=== PATIENT | male | born 1955 | race American Indian/Alaskan Native ===

== ENCOUNTER 2017-09-19 12:15 | Inpatient (IN) | payer MEDICARE ==
[2017-09-19] MEDS ORDERED: Sodium Chloride 0.9% 10 ML Syringe FLUSH PRN ×2 (12:28→15:56)
[2017-09-19] MEDS ORDERED: Lactated Ringers 1,000 ML IV SCH (12:30)
[2017-09-19] MEDS ORDERED: Levofloxacin/Dextrose 5%-Water 750 MG in Premix Bag 1 BAG IV SCH (12:30)
[2017-09-19] MEDS ORDERED: methylPREDNISolone Sodium Succinate 125 MG/2 ML SDV IVPUSH ONE (12:32)
[2017-09-19] MEDS ORDERED: Aspirin 81 MG Tab.Chew PO ONE (12:34)
--- NOTE | 2017-09-19 12:37 | EDM.PDOC ---
ED HPI GENERAL MEDICAL PROBLEM - General Chief Complaint: Fever Stated Complaint: CARDIAC/RESP [facility]IA [facility] Time Seen by Provider: 09/19/17 12:28 Source of Information: Reports: Patient, EMS, RN Notes Reviewed History Limitations: Reports: Respiratory Distress - History of Present Illness INITIAL COMMENTS - FREE TEXT/NARRATIVE: 62-year-old gentleman presents to the emergency department day complaint of shortness of breath and chest pain, he states he's been ill for about a week [place] was unable to get to the clinic, he states he's been progressively more short of breath over the week cough with sputum production now he is having chest pain EMS services were called. On arrival he was found to be hypoxic and tachycardic he does have an extensive coronary artery history as well as chronic obstructive pulmonary disease. Was given 3 nitroglycerin in route as he was also hypertensive he felt he had some relief from the nitroglycerin was placed on CPAP and given a DuoNeb in route as well. He does admit to having a fever at home he did not get his flu shot this year - Related Data Allergies Allergy/AdvReac Type Severity Reaction Status Date / Time No Known Allergies Allergy Verified 09/19/17 12:26 Home Meds: Home Meds NK [No Known Home Meds] 09/19/17 [History] Past Medical History Cardiovascular History: Reports: Bypass, CAD, High Cholesterol, Hypertension, Stents Respiratory History: Reports: COPD Endocrine/Metabolic History: Reports: Diabetes, Type II - Past Surgical History Cardiovascular Surgical History: Reports: Coronary Artery Bypass Social & Family History - Tobacco Use Smoking Status *Q: Current Every Day Smoker ED ROS GENERAL - Review of Systems Review Of Systems: See Below Constitutional: Reports: Fever, Chills HEENT: Reports: No Symptoms Respiratory: Reports: Shortness of Breath, Wheezing, Cough, Sputum Cardiovascular: Reports: Chest Pain, Dyspnea on Exertion GI/Abdominal: Reports: No Symptoms : Reports: No Symptoms Musculoskeletal: Reports: No Symptoms Skin: Reports: No Symptoms Neurological: Reports: No Symptoms ED EXAM, SEPSIS - Physical Exam Exam: See Below Text/Narrative:: General: Male moderate respiratory distress on CPAP able speak in single word sentences, alert and oriented x3 HEENT: head is atraumatic normocephalic, eyes pupils equal round reactive to light, sclera clear no conjunctivitis appreciated. Ears blocked by cerumen bilaterally. Nose no septal deviation, nares are clear, no blood present. Mouth mucosa is dry and red no erythema or exudate noted in soft palate, tongue is midline uvula is midline, dentition is intact. Neck: Supple no thyromegaly no tracheal deviation. Nodes: Cervical nodes subclavicular nodes nontender no palpable lymphadenopathy noted. Lungs: Decreased breath sounds with wheezing and crackles bilaterally throughout all lung spence CV: Tachycardic rate and rhythm S1 and S2 difficult to appreciate any adventitious noises Abdomen: Soft, nontender, no palpable masses or organomegaly appreciated, no distention no guarding bowel sounds are present, . Neuro: Cranial nerves II through XII grossly intact Skin: Warm and dry, intact Extremities: No lower extremity edema appreciated, Course - Vital Signs Last Recorded V/S: Last Vital Signs Temp 102.6 F H 09/19/17 12:34 Pulse 131 H 09/19/17 13:06 Resp 15 09/19/17 13:06 BP 134/101 H 09/19/17 13:06 Pulse Ox 98 09/19/17 13:06 - Orders/Labs/Meds Orders: Active Orders 24 hr Category Date Time Status BIPAP [RT BiPAP/CPAP] [RC] ASDIRECTED Care 09/19/17 13:37 Ordered Peripheral IV Care [RC] . DIRECTED Care 09/19/17 12:30 Active Vital Signs [RC] Q1H Care 09/19/17 12:28 Active Chest 1V Frontal [CR] Urgent Exams 09/19/17 12:28 Taken CULTURE BLOOD [BC] Urgent Lab 09/19/17 12:26 Received CULTURE BLOOD [BC] Urgent Lab 09/19/17 12:36 Received CULTURE RESPIRATORY + SMEAR [RM] Urgent Lab 09/19/17 12:28 Uncollected UA W/MICROSCOPIC [URIN] Urgent Lab 09/19/17 12:28 Uncollected Lactated Ringers [Ringers, Lactated] 1,000 ml Med 09/19/17 12:30 Active IV ASDIRECTED Levofloxacin/Dextrose 5%-Water [Levaquin in D5W 750 MG/ Med 09/19/17 12:30 Active 150 ML] 750 mg Premix Bag 1 bag IV Q24H Piperacillin/Tazobactam [Zosyn] 3.375 gm Med 09/19/17 13:45 Ordered Sodium Chloride 0.9% [Normal Saline] 50 ml IV Q6H Sodium Chloride 0.9% [Saline Flush] Med 09/19/17 12:28 Active 10 ml FLUSH ASDIRECTED PRN Blood Culture x2 Reflex Set [OM.PC] Urgent Oth 09/19/17 12:28 Ordered Peripheral IV Insertion Adult [OM.PC] Urgent Oth 09/19/17 12:28 Ordered Medication Orders Lactated Ringer's (Ringers, Lactated) 1,000 mls @ 999 mls/hr IV ASDIRECTED ANTONINA Last Admin: 09/19/17 12:51 Dose: 999 mls/hr Levofloxacin/Dextrose 750 mg/ (Premix) 150 mls @ 100 mls/hr IV Q24H ANTONINA Last Admin: 09/19/17 12:52 Dose: 100 mls/hr Piperacillin Sod/Tazobactam (Sod 3.375 gm/ Sodium Chloride) 50 mls @ 100 mls/ hr IV Q6H [facility] Sodium Chloride (Saline Flush) 10 ml FLUSH ASDIRECTED PRN PRN Reason: Keep Vein Open Last Admin: 09/19/17 12:51 Dose: 10 ml Labs: Laboratory Tests 09/19/17 09/19/17 09/19/17 Range/Units 12:26 12:26 12:26 WBC 21.7 H (4.5-11.0) K/uL RBC 5.28 (4.30-5.90) M/uL Hgb 15.6 H (12.0-15.0) g/dL Hct 45.5 (40.0-54.0) % MCV 86 (80-98) fL MCH 30 (27-31) pg MCHC 34 (32-36) % Plt Count 480 H (150-400) K/uL Neut % (Auto) 90 H (36-66) % Lymph % (Auto) 5 L (24-44) % Woodward % (Auto) 6 (2-6) % Eos % (Auto) 0 L (2-4) % Baso % (Auto) 0 (0-1) % Puncture Site ABG pH (7.350-7.450) ABG pCO2 (35.0-42.0) mmHg ABG pO2 (75.0-100.0) mmHg ABG HCO3 (22.0-26.0) mmol/L ABG Total CO2 (23.0-27.0) mmol/L ABG O2 Saturation (95.0-98.0) % ABG O2 Content (15.0-23.0) %vol ABG Base Excess mm/L ABG Hemoglobin (13.5-18.0) g/dL ABG Oxyhemoglobin % ABG Carboxyhemoglobin (0.0-1.6) % ABG Methemoglobin % Ollie Test O2 Delivery Device Oxygen Flow Rate L Sodium 138 L (140-148) mmol/L Potassium 3.7 (3.6-5.2) mmol/L Chloride 103 (100-108) mmol/L Carbon Dioxide 25 (21-32) mmol/L Anion Gap 13.7 (5.0-14.0) mmol/L BUN 9 (7-18) mg/dL Creatinine 0.9 (0.8-1.3) mg/dL Est Cr Clr Drug Dosing 87.28 mL/min Estimated GFR (MDRD) > 60 (>60) Glucose 131 H (74-106) mg/dL Lactic Acid 1.1 (0.4-2.0) mmol/L Calcium 8.6 (8.5-10.1) mg/dL Total Bilirubin 1.2 H (0.2-1.0) mg/dL AST 23 (15-37) U/L ALT 32 (12-78) U/L Alkaline Phosphatase 118 H (46-116) U/L Troponin I (0.000-0.056) ng/mL C-Reactive Protein 16.98 H (0.0-0.3) mg/dL Total Protein 6.7 (6.4-8.2) g/dL Albumin 1.9 L (3.4-5.0) g/dL Globulin 4.8 H (2.3-3.5) g/dL Albumin/Globulin Ratio 0.4 L (1.2-2.2) 09/19/17 09/19/17 Range/Units 12:26 12:30 WBC (4.5-11.0) K/uL RBC (4.30-5.90) M/uL Hgb (12.0-15.0) g/dL Hct (40.0-54.0) % MCV (80-98) fL MCH (27-31) pg MCHC (32-36) % Plt Count (150-400) K/uL Neut % (Auto) (36-66) % Lymph % (Auto) (24-44) % Woodward % (Auto) (2-6) % Eos % (Auto) (2-4) % Baso % (Auto) (0-1) % Puncture Site Rt radial ABG pH 7.524 H (7.350-7.450) ABG pCO2 29.2 L (35.0-42.0) mmHg ABG pO2 57.2 L (75.0-100.0) mmHg ABG HCO3 23.9 (22.0-26.0) mmol/L ABG Total CO2 20.2 L (23.0-27.0) mmol/L ABG O2 Saturation 91.4 L (95.0-98.0) % ABG O2 Content 19.1 (15.0-23.0) %vol ABG Base Excess 2.4 mm/L ABG Hemoglobin 15.1 (13.5-18.0) g/dL ABG Oxyhemoglobin 90.3 % ABG Carboxyhemoglobin 0.6 (0.0-1.6) % ABG Methemoglobin 0.6 % Ollie Test Pass O2 Delivery Device Non rebr mask Oxygen Flow Rate 4 L Sodium (140-148) mmol/L Potassium (3.6-5.2) mmol/L Chloride (100-108) mmol/L Carbon Dioxide (21-32) mmol/L Anion Gap (5.0-14.0) mmol/L BUN (7-18) mg/dL Creatinine (0.8-1.3) mg/dL Est Cr Clr Drug Dosing mL/min Estimated GFR (MDRD) (>60) Glucose (74-106) mg/dL Lactic Acid (0.4-2.0) mmol/L Calcium (8.5-10.1) mg/dL Total Bilirubin (0.2-1.0) mg/dL AST (15-37) U/L ALT (12-78) U/L Alkaline Phosphatase (46-116) U/L Troponin I < 0.017 (0.000-0.056) ng/mL C-Reactive Protein (0.0-0.3) mg/dL Total Protein (6.4-8.2) g/dL Albumin (3.4-5.0) g/dL Globulin (2.3-3.5) g/dL Albumin/Globulin Ratio (1.2-2.2) Meds: Medications Generic Name Dose Route Start Last Admin Trade Name Freq PRN Reason Stop Dose Admin Lactated Ringer's 1,000 mls @ 999 mls/hr 09/19/17 12:30 09/19/17 12:51 Ringers, Lactated IV 999 mls/hr ASDIRECTED ANTONINA Administration Levofloxacin/Dextrose 750 mg/ 150 mls @ 100 mls/hr 09/19/17 12:30 09/19/17 12 :52 Premix IV 100 mls/hr Q24H ANTONINA Administration Piperacillin Sod/Tazobactam 50 mls @ 100 mls/hr 09/19/17 13:45 Sod 3.375 gm/ Sodium Chloride IV Q6H ANTONINA Sodium Chloride 10 ml 09/19/17 12:28 09/19/17 12:51 Saline Flush FLUSH 10 ml ASDIRECTED PRN Administration Keep Vein Open Discontinued Medications Generic Name Dose Route Start Last Admin Trade Name Freq PRN Reason Stop Dose Admin Aspirin 324 mg 09/19/17 12:34 09/19/17 12:40 Aspirin PO 09/19/17 12:35 Not Given ONETIME ONE Methylprednisolone Sodium Succinate 125 mg 09/19/17 12:32 09/19/17 12:51 Solu-Medrol IVPUSH 09/19/17 12:33 125 mg ONETIME ONE Administration Departure - Departure Time of Disposition: 13:44 Disposition: Admitted As Inpatient 68 Condition: Fair Clinical Impression: Sepsis Qualifiers: Sepsis type: sepsis due to unspecified organism Qualified Code(s): A41.9 - Sepsis, unspecified organism - Discharge Information Forms: ED Department Discharge - My Orders Last 24 Hours: My Active Orders 09/19/17 12:26 CULTURE BLOOD [BC] Urgent 09/19/17 12:28 Vital Signs [RC] Q1H Chest 1V Frontal [CR] Urgent CULTURE RESPIRATORY + SMEAR [RM] Urgent UA W/MICROSCOPIC [URIN] Urgent Sodium Chloride 0.9% [Saline Flush] 10 ml FLUSH ASDIRECTED PRN Blood Culture x2 Reflex Set [OM.PC] Urgent Peripheral IV Insertion Adult [OM.PC] Urgent 09/19/17 12:30 Peripheral IV Care [RC] . DIRECTED Lactated Ringers [Ringers, Lactated] 1,000 ml IV ASDIRECTED Levofloxacin/Dextrose 5%-Water [Levaquin in D5W 750 MG/150 ML] 750 mg Premix Bag 1 bag IV Q24H 09/19/17 12:36 CULTURE BLOOD [BC] Urgent 09/19/17 13:37 BIPAP [RT BiPAP/CPAP] [RC] ASDIRECTED 09/19/17 13:45 Piperacillin/Tazobactam [Zosyn] 3.375 gm Sodium Chloride 0.9% [Normal Saline] 50 ml IV Q6H - Assessment/Plan Last 24 Hours: My Active Orders 09/19/17 12:26 CULTURE BLOOD [BC] Urgent 09/19/17 12:28 Vital Signs [RC] Q1H Chest 1V Frontal [CR] Urgent CULTURE RESPIRATORY + SMEAR [RM] Urgent UA W/MICROSCOPIC [URIN] Urgent Sodium Chloride 0.9% [Saline Flush] 10 ml FLUSH ASDIRECTED PRN Blood Culture x2 Reflex Set [OM.PC] Urgent Peripheral IV Insertion Adult [OM.PC] Urgent 09/19/17 12:30 Peripheral IV Care [RC] . DIRECTED Lactated Ringers [Ringers, Lactated] 1,000 ml IV ASDIRECTED Levofloxacin/Dextrose 5%-Water [Levaquin in D5W 750 MG/150 ML] 750 mg Premix Bag 1 bag IV Q24H 09/19/17 12:36 CULTURE BLOOD [BC] Urgent 09/19/17 13:37 BIPAP [RT BiPAP/CPAP] [RC] ASDIRECTED 09/19/17 13:45 Piperacillin/Tazobactam [Zosyn] 3.375 gm Sodium Chloride 0.9% [Normal Saline] 50 ml IV Q6H Plan: Assessment Acuity = acute Site and laterality = sepsis with pulmonary component complicated patient with known history of chronic obstructive pulmonary disease and diabetes mellitus type 2 as well as coronary artery disease Etiology = probable bacterial cause Manifestations = hypoxic, tachycardic, fever Location of injury = Home Lab values = WBC elevated at 21.7 consistent leukocytosis of pH is 7.5 to consistent with alkalosis PCO2 29.2 PCO2 57.2 and a bicarbonate of 24 bilirubin total is 1.1 consistent hyperbilirubinemia albumin low at 1.9 consistent hypoalbuminemia lactic acid and troponin both negative chest x-ray shows infiltrates on the right side EKG demonstrates a sinus tachycardia Plan Called and discussed case with hospitalist electronic security technician agreed, and evaluate the patient in the emergency department for admission has been given a dose of Zosyn as well as levofloxacin 1 L of lactated Ringer's initiated This note was dictated using [employer] voice recognition software please call with any questions on syntax or kiara.
[2017-09-19] MEDS ORDERED: Piperacillin/Tazobactam 3.375 GM in Sodium Chloride 0.9% 50 ML IV SCH (13:45)
[2017-09-19] MEDS ORDERED: Lactated Ringers 1,000 ML IV ONE (14:34)
[2017-09-19] MEDS ORDERED: Ondansetron 4 MG/2 ML SDV IV PRN (15:56)
[2017-09-19] MEDS ORDERED: Docusate Sodium 100 MG Cap PO PRN (15:56)
[2017-09-19] MEDS ORDERED: Glucose Gel 15 GM in 37.5 GM Tube PO PRN (15:56)
[2017-09-19] MEDS ORDERED: Albuterol 0.083% 2.5 MG/3 ML Neb Soln NEB PRN (15:56)
[2017-09-19] MEDS ORDERED: Lactated Ringers 500 ML IV SCH (15:56)
[2017-09-19] MEDS ORDERED: oxyCODONE 5 MG Tab PO PRN (15:56)
[2017-09-19] MEDS ORDERED: Magnesium Hydroxide 400 MG/5 ML Susp 30 ML Cup PO PRN (15:56)
[2017-09-19] MEDS ORDERED: 50% Dextrose in Water 50 ML Syringe IV PRN (15:56)
[2017-09-19] MEDS ORDERED: Enoxaparin 40 MG/0.4 ML Syringe SUBCUT SCH (15:56)
[2017-09-19] MEDS ORDERED: Polyethylene Glycol 3350 Powder 17 GM Packet PO PRN (15:56)
[2017-09-19] MEDS: Metoprolol Tartrate 25 MG Tab PO SCH ×2 (16:28→20:32)
[2017-09-19] MEDS: Albuterol/Ipratropium 3.0-0.5 MG/3 ML Neb Soln NEB SCH ×2 (16:28→20:33)
[2017-09-19] MEDS: Piperacillin/Tazobactam 4.5 GM in Sodium Chloride 0.9% 100 ML IV SCH ×2 (16:51→22:08)
--- NOTE | 2017-09-19 16:58 | PCM.HP ---
H&P History of Present Illness - General Date of Service: 09/19/17 Admit Problem/Dx: Admission Diagnosis/Problem Admission Diagnosis/Problem Pneumonia Source of Information: Patient, Provider, RN Notes Reviewed History Limitations: Reports: No Limitations - History of Present Illness Initial Comments - Free Text/Narative: Mr. Turner is a 62-year-old gentleman who is admitted through the emergency department with hypoxia and shortness of breath secondary to right lung pneumonia with underlying sepsis and COPD exacerbation. He has a known history of coronary artery disease status post previous coronary artery bypass surgery. Over the past 2 weeks his had progressive difficulty with shortness of breath fever and cough. Symptoms became very severe today and he called for the ambulance and was brought into the emergency department by EMS. When initially picked up by EMS was felt to have some chest pain and received IV nitroglycerin in the ambulance. Nitroglycerin was discontinued when he arrived in the emergency department with no evidence of acute myocardial infarction or angina. White blood cell count is significantly elevated and he is been noted to have temperature elevation with tachycardia and documented hypoxia. Respiratory rate was significantly increased into the 30s and he was found to have sinus tachycardia with rates in the 150 range. He is currently on BiPAP and noted significant improvement in his respiratory symptoms following IV fluid infusion heart rate is come down between 110 and 120. - Related Data Allergies/Adverse Reactions: Allergies Allergy/AdvReac Type Severity Reaction Status Date / Time No Known Allergies Allergy Verified 09/19/17 12:26 Home Medications: Home Meds NK [No Known Home Meds] 09/19/17 [History] Past Medical History Cardiovascular History: Reports: Bypass, CAD, High Cholesterol, Hypertension, Stents Respiratory History: Reports: COPD Endocrine/Metabolic History: Reports: Diabetes, Type II - Past Surgical History Cardiovascular Surgical History: Reports: Coronary Artery Bypass Social & Family History - Tobacco Use Smoking Status *Q: Former Smoker Used Tobacco, but Quit: Yes Month Tobacco Last Used: 1 - Caffeine Use Caffeine Use: Reports: Coffee - Recreational Drug Use Recreational Drug Use: No H&P Review of Systems - Review of Systems: Review Of Systems: See Below General: Reports: Fever, Chills, Weakness, Diaphoresis, Decreased Appetite HEENT: Reports: No Symptoms Pulmonary: Reports: Shortness of Breath, Wheezing, Cough, Sputum. Denies: Pleuritic Chest Pain, Hemoptysis Cardiovascular: Reports: Dyspnea on Exertion. Denies: Chest Pain, Palpitations , Orthopnea, PND, Edema, Lightheadedness, Syncope Gastrointestinal: Reports: No Symptoms Genitourinary: Reports: No Symptoms Musculoskeletal: Reports: No Symptoms Skin: Reports: No Symptoms Psychiatric: Reports: No Symptoms Neurological: Reports: No Symptoms Hematologic/Lymphatic: Reports: No Symptoms Immunologic: Reports: No Symptoms Exam - Exam Exam: See Below - Vital Signs Vital Signs: Last Vital Signs Temp 100.4 F 09/19/17 14:49 Pulse 103 H 09/19/17 16:28 Resp 26 H 09/19/17 16:00 BP 144/96 H 09/19/17 16:28 Pulse Ox 97 09/19/17 16:00 Weight: 232 lb 3.2 oz - Exam Quality Assessment: Supplemental Oxygen, DVT Prophylaxis General: Alert, Oriented, Cooperative, Moderate Distress HEENT: Conjunctiva Clear, Hearing Intact, Mucosa Moist & [place], Normal Nasal Septum, Posterior Pharynx Clear, Pupils Equal Neck: Supple, Trachea Midline, +2 Carotid Pulse wo Bruit Lungs: Decreased Breath Sounds, Rhonchi, Wheezing. No: Crackles, Rales, Rub, Stridor Cardiovascular: Regular Rhythm, Normal S1, Normal S2, Tachycardia. No: Systolic Murmur, Diastolic Murmur GI/Abdominal Exam: Soft, Non-Tender, No Organomegaly, No Distention Back Exam: Normal Inspection, Full Range of Motion Extremities: Non-Tender, No Pedal Edema Skin: Warm, Dry, Intact Neurological: Cranial Nerves Intact, Strength Equal Bilateral, Normal Speech, Normal Tone, Sensation Intact. No: Focal Deficit Neuro Extensive - Mental Status: Alert, Oriented x3, Normal Mood/Affect, Normal Cognition, Memory Intact - Patient Data Lab Results Last 24 hrs: Laboratory Results - last 24 hr 09/19/17 Range/Units 16:10 Urine Color [place] Urine Appearance Cloudy Urine pH 7.0 (4.5-8.0) Ur Specific [place] 1.010 (1.008-1.030) Urine Protein 100 H (NEGATIVE) mg/dL Urine Glucose (UA) Normal (NEGATIVE) mg/dL Urine Ketones Negative (NEGATIVE) mg/dL Urine Occult Blood Negative (NEGATIVE) Urine Nitrite Negative (NEGAITVE) Urine Bilirubin Small (NEGATIVE) Urine Urobilinogen 8 (NORMAL) mg/dL Ur Leukocyte Esterase Negative (NEGATIVE) Urine RBC 0-5 (0-5) Urine WBC 0-5 (0-5) Ur Epithelial Cells Few Amorphous Sediment Few Urine Bacteria Rare Urine Mucus Numerous Result Diagrams: 09/19/17 12:26 09/19/17 12:26 Federico Results Last 24 hrs: Microbiology 09/19/17 16:17 Gram Stain - Final Sputum - Expectorated *Q Meaningful Use (ADM) - VTE *Q VTE Criteria *Q: - VTE Risk Assess *Q Each Risk Factor Represents 1 Point: Serious lung disease including pneumonia, Abnormal Pulmonary Function (COPD) Total Score 1 Point Risk Factors: 2 Each Risk Factor Represents 2 Points: Age 60 - 74 Years Total Score 2 Point Risk Factors: 2 Each Risk Factor Represents 3 Points: None Total Score 3 Point Risk Factors: 0 Each Risk Factor Represents 5 Points: None Total Score 5 Point Risk Factors: 0 Venous Thromboembolism Risk Factor Score *Q: 4 - Stroke *Q Stroke Criteria *Q: - AMI *Q AMI Criteria *Q: Problem List Initiated/Reviewed/Updated: Yes Orders Last 24hrs: Active Orders 24 hr Category Date Time Status Patient Status [ADT] Routine ADT 09/19/17 15:56 Active Ambulate [RC] QID Care 09/19/17 15:56 Active Blood Glucose Check, Bedside [RC] QIDACANDBED Care 09/19/17 15:56 Active Cardiac Monitoring [RC] .As Directed Care 09/19/17 15:56 Active Diabetes Education [RC] Click to Edit Care 09/19/17 15:56 Active Height and Weight [RC] DAILY Care 09/19/17 15:56 Active Intake and Output [RC] QSHIFT Care 09/19/17 15:56 Active Notify Provider Vital Signs [RC] ASDIRECTED Care 09/19/17 15:56 Active Notify Provider [RC] PRN Care 09/19/17 15:56 Active Oxygen Therapy [RC] PRN Care 09/19/17 15:56 Active Pulse Oximetry [RC] CONTINUOUS Care 09/19/17 15:56 Active RT Aerosol Therapy [RC] ASDIRECTED Care 09/19/17 15:56 Active RT BiPAP/CPAP [RC] ASDIRECTED Care 09/19/17 15:56 Active Up With Assistance [RC] ASDIRECTED Care 09/19/17 15:56 Active Up to Chair [RC] QID Care 09/19/17 15:56 Active Vital Signs [RC] Q4H Care 09/19/17 15:56 Active 2 Gram Sodium Diet [DIET] Diet 09/19/17 Lunch Active Consistent Carbohydrate Diet [DIET] Diet 09/19/17 Lunch Active Chest 1V Frontal [CR] AM Exams 09/20/17 05:11 Ordered Echo Comp wo Cont [US] Urgent Exams 09/21/17 08:00 Ordered BLOOD GAS ARTERIAL [BG] Stat Lab 09/19/17 17:00 Ordered BLOOD GAS ARTERIAL [BG] Timed Lab 09/20/17 05:00 Ordered CBC WITH AUTO DIFF [HEME] AM Lab 09/20/17 05:11 Ordered COMPREHENSIVE METABOLIC PN,CMP [CHEM] AM Lab 09/20/17 05:11 Ordered GLUCOSE POC LAB TO COLLECT [POC] QIDACANDBED Lab 09/20/17 07:30 Ordered GLUCOSE POC LAB TO COLLECT [POC] QIDACANDBED Lab 09/20/17 11:30 Ordered GLUCOSE POC LAB TO COLLECT [POC] QIDACANDBED Lab 09/20/17 16:30 Ordered GLUCOSE POC LAB TO COLLECT [POC] QIDACANDBED Lab 09/20/17 21:00 Ordered GLUCOSE POC LAB TO COLLECT [POC] QIDACANDBED Lab 09/21/17 07:30 Ordered GLUCOSE POC LAB TO COLLECT [POC] QIDACANDBED Lab 09/21/17 11:30 Ordered GLUCOSE POC LAB TO COLLECT [POC] QIDACANDBED Lab 09/21/17 16:30 Ordered GLUCOSE POC LAB TO COLLECT [POC] QIDACANDBED Lab 09/21/17 21:00 Ordered GLUCOSE POC LAB TO COLLECT [POC] QIDACANDBED Lab 09/22/17 07:30 Ordered GLUCOSE POC LAB TO COLLECT [POC] QIDACANDBED Lab 09/22/17 11:30 Ordered GLUCOSE POC LAB TO COLLECT [POC] QIDACANDBED Lab 09/22/17 16:30 Ordered GLUCOSE POC LAB TO COLLECT [POC] QIDACANDBED Lab 09/22/17 21:00 Ordered GLUCOSE POC LAB TO COLLECT [POC] QIDACANDBED Lab 09/23/17 07:30 Ordered GLUCOSE POC LAB TO COLLECT [POC] QIDACANDBED Lab 09/23/17 11:30 Ordered GLUCOSE POC LAB TO COLLECT [POC] QIDACANDBED Lab 09/23/17 16:30 Ordered GLUCOSE POC LAB TO COLLECT [POC] QIDACANDBED Lab 09/23/17 21:00 Ordered GLUCOSE POC LAB TO COLLECT [POC] QIDACANDBED Lab 09/24/17 07:30 Ordered GLUCOSE POC LAB TO COLLECT [POC] QIDACANDBED Lab 09/24/17 11:30 Ordered GLUCOSE POC LAB TO COLLECT [POC] QIDACANDBED Lab 09/24/17 16:30 Ordered GLUCOSE POC LAB TO COLLECT [POC] QIDACANDBED Lab 09/24/17 21:00 Ordered GLYCOSYLATED HEMOGLOBIN,HGBA1C [CHEM] AM Lab 09/20/17 05:11 Ordered LIPID PANEL [CHEM] AM Lab 09/20/17 05:11 Ordered MAGNESIUM [CHEM] AM Lab 09/20/17 05:11 Ordered TROPONIN I [CHEM] AM Lab 09/20/17 05:11 Ordered TROPONIN I [CHEM] Stat Lab 09/19/17 17:00 Ordered TROPONIN I [CHEM] Stat Lab 09/19/17 23:00 Ordered Acetaminophen [Tylenol] Med 09/19/17 15:56 Active 650 mg PO Q4H PRN Albuterol [Proventil Neb Soln] Med 09/19/17 15:56 Active 2.5 mg NEB Q4H PRN Albuterol/Ipratropium [DuoNeb 3.0-0.5 MG/3 ML] Med 09/19/17 16:15 Active 3 ml NEB QIDRT Dextrose 50% in Water Med 09/19/17 15:56 Active 50 ml IV ONETIME PRN Dextrose [Glutose 15] Med 09/19/17 15:56 Active 15 gm PO ONETIME PRN Docusate Sodium [Colace] Med 09/19/17 15:56 Active 100 mg PO BID PRN Enoxaparin [Lovenox] Med 09/19/17 15:56 Active 40 mg SUBCUT DAILY Insulin Aspart [NovoLOG] Med 09/19/17 17:00 Active See Protocol SUBCUT QIDACANDBED Lactated Ringers [Ringers, Lactated] 1,000 ml Med 09/19/17 18:00 Active IV ASDIRECTED Lactated Ringers [Ringers, Lactated] 500 ml Med 09/19/17 15:56 Active IV .BOLUS Levofloxacin/Dextrose 5%-Water [Levaquin in D5W 750 MG/ Med 09/20/17 13:00 Active 150 ML] 750 mg Premix Bag 1 bag IV Q24H Lisinopril [Prinivil] Med 09/20/17 09:00 Active 10 mg PO DAILY Magnesium Hydroxide [Milk of Magnesia] Med 09/19/17 15:56 Active 30 ml PO Q12H PRN Metoprolol Tartrate [Lopressor] Med 09/19/17 15:56 Active 25 mg PO BID Ondansetron [Zofran] Med 09/19/17 15:56 Active 4 mg IV Q4H PRN Piperacillin/Tazobactam [Zosyn] 4.5 gm Med 09/19/17 16:00 Active Sodium Chloride 0.9% [Normal Saline] 100 ml IV Q6H Polyethylene Glycol 3350 [MiraLAX] Med 09/19/17 15:56 Active 17 gm PO DAILY PRN Sodium Chloride 0.9% [Saline Flush] Med 09/19/17 15:56 Active 10 ml FLUSH ASDIRECTED PRN oxyCODONE Med 09/19/17 15:56 Active 5 mg PO Q4H PRN Give supplemental Oxygen PRN [COMM] Routine Oth 09/19/17 15:56 Ordered Peripheral IV Insertion Adult [OM.PC] Routine Oth 09/19/17 15:56 Ordered Resuscitation Status Routine Resus Stat 09/19/17 14:56 Ordered Medication Orders Acetaminophen (Tylenol) 650 mg PO Q4H PRN PRN Reason: Pain (Mild 1-3)/fever Albuterol (Proventil Neb Soln) 2.5 mg NEB Q4H PRN PRN Reason: Shortness Of Breath/wheezing Albuterol/Ipratropium (Duoneb 3.0-0.5 Mg/3 Ml) 3 ml NEB QIDRT [facility] Last Admin: 09/19/17 16:28 Dose: 3 ml Dextrose (Glutose 15) 15 gm PO ONETIME PRN PRN Reason: Hypoglycemia Dextrose/Water (Dextrose 50% In Water) 50 ml IV ONETIME PRN PRN Reason: Hypoglycemia Docusate Sodium (Colace) 100 mg PO BID PRN PRN Reason: Constipation Enoxaparin Sodium (Lovenox) 40 mg SUBCUT DAILY [facility] Last Admin: 09/19/17 16:48 Dose: 40 mg Lactated Ringer's (Ringers, Lactated) 500 mls @ 500 mls/hr IV .BOLUS [facility] Stop: 09/19/17 18:57 Last Admin: 09/19/17 16:49 Dose: 500 mls/hr Lactated Ringer's (Ringers, Lactated) 1,000 mls @ 125 mls/hr IV ASDIRECTED [facility] Levofloxacin/Dextrose 750 mg/ (Premix) 150 mls @ 100 mls/hr IV Q24H [facility] Piperacillin Sod/Tazobactam (Sod 4.5 gm/ Sodium Chloride) 100 mls @ 200 mls/hr IV Q6H [facility] Last Admin: 09/19/17 16:51 Dose: 200 mls/hr Insulin Aspart (Novolog) 0 unit SUBCUT QIDACANDBED [facility] PRN Reason: Protocol Lisinopril (Prinivil) 10 mg PO DAILY [facility] Magnesium Hydroxide (Milk Of Magnesia) 30 ml PO Q12H PRN PRN Reason: Constipation Metoprolol Tartrate (Lopressor) 25 mg PO BID [facility] Last Admin: 09/19/17 16:28 Dose: 25 mg Ondansetron HCl (Zofran) 4 mg IV Q4H PRN PRN Reason: Nausea/Vomiting Oxycodone HCl (Oxycodone) 5 mg PO Q4H PRN PRN Reason: Pain (moderate 4-6) Polyethylene Glycol (Miralax) 17 gm PO DAILY PRN PRN Reason: Constipation Sodium Chloride (Saline Flush) 10 ml FLUSH ASDIRECTED PRN PRN Reason: Keep Vein Open Assessment/Plan Comment:: ASSESSMENT AND PLAN PNEUMONIA WITH SEPSIS-symptoms a respiratory tract infection over the past 2 weeks, significantly worse over the past few days. Evidence of sepsis with tachycardia, leukocytosis, and significant temperature elevation. He is receiving vigorous IV fluid replacement in the emergency department and started on antibiotic therapy. Blood cultures were obtained prior to initiation of antibiotics. -Blood cultures pending -Sputum culture pending -IV fluid replacement per sepsis protocol, 30 mL/kg -IV Levaquin and Zosyn pending culture results -Follow-up chest x-ray in a.m. HYPOXIC RESPIRATORY FAILURE-secondary to pneumonia and underlying COPD -Supplemental oxygen as needed -Management of pneumonia as above -Noninvasive positive pressure ventilation -Recheck blood gases today and again tomorrow -Nebulized albuterol and duo nebs COPD EXACERBATION -Management as above TYPE 2 DIABETES MELLITUS -4 times a day glucometers -Low-dose sliding scale NovoLog CORONARY ARTERY DISEASE-he did experience symptoms of chest pain this morning when picked up by EMS. Since then has had no further pain, initial EKG and troponin levels unremarkable for ischemia or infarct. -Currently on no medical therapy, will add low-dose beta any and DEMETRIUS inhibitor -Serial troponin levels -Consider stress test when respiratory status has stabilized MAINTENANCE ISSUES -DVT prophylaxis; Lovenox 40 mg subcutaneous daily -GI prophylaxis; not indicated -Weller catheter; not indicated -Nutrition; consistent carb 2 g sodium diet -Nicotine dependence; not required CODE STATUS-FULL CODE ADMISSION STATUS-patient will be admitted to inpatient status, expect at least a 2 night hospital stay for evaluation and management of problems as outlined above. At the time of this admission I do not reasonably expected evaluation and management of this problem will require more than a 96 hour hospital stay. DISPOSITION-anticipate discharge to home after the hospital stay. PRIMARY CARE PROVIDER-currently does not have a primary care provider
[2017-09-19] MEDS: Insulin Aspart 100 Units/ML 3 ML Pen SUBCUT SCH ×2 (17:52→20:28)
[2017-09-19] MEDS: Lactated Ringers 1,000 ML IV SCH (17:59)
[2017-09-20] MEDS: Lactated Ringers 1,000 ML IV SCH (02:10)
[2017-09-20] MEDS ORDERED: Sodium Chloride 0.9% 100 ML ONE (04:17)
[2017-09-20] MEDS: Piperacillin/Tazobactam 4.5 GM in Sodium Chloride 0.9% 100 ML IV SCH (04:24)
[2017-09-20] MEDS: Albuterol/Ipratropium 3.0-0.5 MG/3 ML Neb Soln NEB SCH ×4 (07:05→20:19)
[2017-09-20] MEDS: Insulin Aspart 100 Units/ML 3 ML Pen SUBCUT SCH ×4 (08:06→20:19)
[2017-09-20] MEDS: Metoprolol Tartrate 25 MG Tab PO SCH ×2 (08:18→20:18)
[2017-09-20] MEDS: Lisinopril 10 MG Tab PO SCH (08:19)
--- NOTE | 2017-09-20 09:03 | PCM.PN ---
- General Info Date of Service: 09/20/17 Subjective Update: Mr. Burt is improved since admission, vital signs have stabilized, heart rate now within normal range and respiratory rate has improved significantly. Oxygen saturations have been adequate and he feels less short of breath. He was able to tolerate BiPAP until early this morning and has been off since then. Saturation remains somewhat borderline. - Review of Systems General: Reports: Fever, Weakness, Chills HEENT: Reports: No Symptoms Pulmonary: Reports: Shortness of Breath, Cough, Sputum, Wheezing. Denies: Pleuritic Chest Pain, Hemoptysis Cardiovascular: Reports: Dyspnea on Exertion. Denies: Chest Pain, Palpitations , Orthopnea, PND, Edema, Lightheadedness Gastrointestinal: Reports: No Symptoms - Patient Data Vitals - Most Recent: Last Vital Signs Temp 97 F 09/20/17 08:00 Pulse 79 09/20/17 08:18 Resp 19 09/20/17 08:00 BP 134/98 H 09/20/17 08:18 Pulse Ox 95 09/20/17 08:00 Weight - Most Recent: 233 lb 1.6 oz I&O - Last 24 Hours: Intake & Output 09/19/17 09/20/17 09/20/17 22:59 06:59 14:59 Intake Total 680 2016 Output Total 550 450 400 Balance 130 1566 -400 Lab Results Last 24 Hours: Laboratory Results - last 24 hr 09/19/17 09/19/17 09/19/17 Range/Units 16:10 17:00 17:00 WBC (4.5-11.0) K/uL RBC (4.30-5.90) M/uL Hgb (12.0-15.0) g/dL Hct (40.0-54.0) % MCV (80-98) fL MCH (27-31) pg MCHC (32-36) % Plt Count (150-400) K/uL Neut % (Auto) (36-66) % Lymph % (Auto) (24-44) % Ashley % (Auto) (2-6) % Eos % (Auto) (2-4) % Baso % (Auto) (0-1) % Puncture Site Rt radial ABG pH 7.486 H (7.350-7.450) ABG pCO2 34.6 L (35.0-42.0) mmHg ABG pO2 58.1 L (75.0-100.0) mmHg ABG HCO3 25.8 (22.0-26.0) mmol/L ABG Total CO2 22.0 L (23.0-27.0) mmol/L ABG O2 Saturation 90.5 L (95.0-98.0) % ABG O2 Content 19.1 (15.0-23.0) %vol ABG Base Excess 3.2 mm/L ABG Hemoglobin 15.2 (13.5-18.0) g/dL ABG Oxyhemoglobin 89.3 % ABG Carboxyhemoglobin 0.7 (0.0-1.6) % ABG Methemoglobin 0.6 % Ollie Test Passed O2 Delivery Device Bipap Oxygen Flow Rate L Sodium (140-148) mmol/L Potassium (3.6-5.2) mmol/L Chloride (100-108) mmol/L Carbon Dioxide (21-32) mmol/L Anion Gap (5.0-14.0) mmol/L BUN (7-18) mg/dL Creatinine (0.8-1.3) mg/dL Est Cr Clr Drug Dosing mL/min Estimated GFR (MDRD) (>60) Glucose (74-106) mg/dL Calcium (8.5-10.1) mg/dL Magnesium (1.8-2.4) mg/dL Total Bilirubin (0.2-1.0) mg/dL AST (15-37) U/L ALT (12-78) U/L Alkaline Phosphatase (46-116) U/L Troponin I < 0.017 (0.000-0.056) ng/mL Total Protein (6.4-8.2) g/dL Albumin (3.4-5.0) g/dL Globulin (2.3-3.5) g/dL Albumin/Globulin Ratio (1.2-2.2) Triglycerides (15-150) mg/dL Cholesterol (0-200) mg/dL LDL Cholesterol Direct (0-100) mg/dL HDL Cholesterol (40-60) mg/dL Urine Color [place] Urine Appearance Cloudy Urine pH 7.0 (4.5-8.0) Ur Specific [place] 1.010 (1.008-1.030) Urine Protein 100 H (NEGATIVE) mg/dL Urine Glucose (UA) Normal (NEGATIVE) mg/dL Urine Ketones Negative (NEGATIVE) mg/dL Urine Occult Blood Negative (NEGATIVE) Urine Nitrite Negative (NEGAITVE) Urine Bilirubin Small (NEGATIVE) Urine Urobilinogen 8 (NORMAL) mg/dL Ur Leukocyte Esterase Negative (NEGATIVE) Urine RBC 0-5 (0-5) Urine WBC 0-5 (0-5) Ur Epithelial Cells Few Amorphous Sediment Few Urine Bacteria Rare Urine Mucus Numerous 09/19/17 09/20/17 09/20/17 Range/Units 23:00 05:11 05:45 WBC 19.7 H (4.5-11.0) K/uL RBC 4.69 (4.30-5.90) M/uL Hgb 13.7 (12.0-15.0) g/dL Hct 41.0 (40.0-54.0) % MCV 87 (80-98) fL MCH 29 (27-31) pg MCHC 33 (32-36) % Plt Count 505 H (150-400) K/uL Neut % (Auto) 88 H (36-66) % Lymph % (Auto) 7 L (24-44) % Ashley % (Auto) 5 (2-6) % Eos % (Auto) 0 L (2-4) % Baso % (Auto) 0 (0-1) % Puncture Site ABG pH (7.350-7.450) ABG pCO2 (35.0-42.0) mmHg ABG pO2 (75.0-100.0) mmHg ABG HCO3 (22.0-26.0) mmol/L ABG Total CO2 (23.0-27.0) mmol/L ABG O2 Saturation (95.0-98.0) % ABG O2 Content (15.0-23.0) %vol ABG Base Excess mm/L ABG Hemoglobin (13.5-18.0) g/dL ABG Oxyhemoglobin % ABG Carboxyhemoglobin (0.0-1.6) % ABG Methemoglobin % Ollie Test O2 Delivery Device Oxygen Flow Rate L Sodium 142 (140-148) mmol/L Potassium 4.0 (3.6-5.2) mmol/L Chloride 106 (100-108) mmol/L Carbon Dioxide 30 (21-32) mmol/L Anion Gap 6.2 (5.0-14.0) mmol/L BUN 12 (7-18) mg/dL Creatinine 0.8 (0.8-1.3) mg/dL Est Cr Clr Drug Dosing 98.19 mL/min Estimated GFR (MDRD) > 60 (>60) Glucose 142 H (74-106) mg/dL Calcium 8.4 L (8.5-10.1) mg/dL Magnesium 2.0 (1.8-2.4) mg/dL Total Bilirubin 0.5 D (0.2-1.0) mg/dL AST 13 L (15-37) U/L ALT 24 (12-78) U/L Alkaline Phosphatase 105 (46-116) U/L Troponin I < 0.017 < 0.017 (0.000-0.056) ng/mL Total Protein 6.0 L (6.4-8.2) g/dL Albumin 1.6 L (3.4-5.0) g/dL Globulin 4.4 H (2.3-3.5) g/dL Albumin/Globulin Ratio 0.4 L (1.2-2.2) Triglycerides 58 (15-150) mg/dL Cholesterol 109 (0-200) mg/dL LDL Cholesterol Direct 76 (0-100) mg/dL HDL Cholesterol 25 L (40-60) mg/dL Urine Color Urine Appearance Urine pH (4.5-8.0) Ur Specific [place] (1.008-1.030) Urine Protein (NEGATIVE) mg/dL Urine Glucose (UA) (NEGATIVE) mg/dL Urine Ketones (NEGATIVE) mg/dL Urine Occult Blood (NEGATIVE) Urine Nitrite (NEGAITVE) Urine Bilirubin (NEGATIVE) Urine Urobilinogen (NORMAL) mg/dL Ur Leukocyte Esterase (NEGATIVE) Urine RBC (0-5) Urine WBC (0-5) Ur Epithelial Cells Amorphous Sediment Urine Bacteria Urine Mucus 09/20/17 Range/Units 06:00 WBC (4.5-11.0) K/uL RBC (4.30-5.90) M/uL Hgb (12.0-15.0) g/dL Hct (40.0-54.0) % MCV (80-98) fL MCH (27-31) pg MCHC (32-36) % Plt Count (150-400) K/uL Neut % (Auto) (36-66) % Lymph % (Auto) (24-44) % Ashley % (Auto) (2-6) % Eos % (Auto) (2-4) % Baso % (Auto) (0-1) % Puncture Site Rt radial ABG pH 7.458 H (7.350-7.450) ABG pCO2 38.4 (35.0-42.0) mmHg ABG pO2 60.0 L (75.0-100.0) mmHg ABG HCO3 26.8 H (22.0-26.0) mmol/L ABG Total CO2 23.5 (23.0-27.0) mmol/L ABG O2 Saturation 91.1 L (95.0-98.0) % ABG O2 Content 17.0 (15.0-23.0) %vol ABG Base Excess 3.3 mm/L ABG Hemoglobin 13.4 L (13.5-18.0) g/dL ABG Oxyhemoglobin 90.2 % ABG Carboxyhemoglobin 0.4 (0.0-1.6) % ABG Methemoglobin 0.6 % Ollie Test Pass O2 Delivery Device Bipap Oxygen Flow Rate 2 L Sodium (140-148) mmol/L Potassium (3.6-5.2) mmol/L Chloride (100-108) mmol/L Carbon Dioxide (21-32) mmol/L Anion Gap (5.0-14.0) mmol/L BUN (7-18) mg/dL Creatinine (0.8-1.3) mg/dL Est Cr Clr Drug Dosing mL/min Estimated GFR (MDRD) (>60) Glucose (74-106) mg/dL Calcium (8.5-10.1) mg/dL Magnesium (1.8-2.4) mg/dL Total Bilirubin (0.2-1.0) mg/dL AST (15-37) U/L ALT (12-78) U/L Alkaline Phosphatase (46-116) U/L Troponin I (0.000-0.056) ng/mL Total Protein (6.4-8.2) g/dL Albumin (3.4-5.0) g/dL Globulin (2.3-3.5) g/dL Albumin/Globulin Ratio (1.2-2.2) Triglycerides (15-150) mg/dL Cholesterol (0-200) mg/dL LDL Cholesterol Direct (0-100) mg/dL HDL Cholesterol (40-60) mg/dL Urine Color Urine Appearance Urine pH (4.5-8.0) Ur Specific [place] (1.008-1.030) Urine Protein (NEGATIVE) mg/dL Urine Glucose (UA) (NEGATIVE) mg/dL Urine Ketones (NEGATIVE) mg/dL Urine Occult Blood (NEGATIVE) Urine Nitrite (NEGAITVE) Urine Bilirubin (NEGATIVE) Urine Urobilinogen (NORMAL) mg/dL Ur Leukocyte Esterase (NEGATIVE) Urine RBC (0-5) Urine WBC (0-5) Ur Epithelial Cells Amorphous Sediment Urine Bacteria Urine Mucus Federico Results Last 24 Hours: Microbiology 09/19/17 16:17 Gram Stain - Final Sputum - Expectorated Med Orders - Current: Current Medications Acetaminophen (Tylenol) 650 mg PO Q4H PRN PRN Reason: Pain (Mild 1-3)/fever Albuterol (Proventil Neb Soln) 2.5 mg NEB Q4H PRN PRN Reason: Shortness Of Breath/wheezing Albuterol/Ipratropium (Duoneb 3.0-0.5 Mg/3 Ml) 3 ml NEB QIDRT [facility] Last Admin: 09/20/17 07:05 Dose: 3 ml Dextrose (Glutose 15) 15 gm PO ONETIME PRN PRN Reason: Hypoglycemia Dextrose/Water (Dextrose 50% In Water) 50 ml IV ONETIME PRN PRN Reason: Hypoglycemia Docusate Sodium (Colace) 100 mg PO BID PRN PRN Reason: Constipation Last Admin: 09/20/17 08:18 Dose: 100 mg Enoxaparin Sodium (Lovenox) 40 mg SUBCUT Q24H [facility] Levofloxacin/Dextrose 750 mg/ (Premix) 150 mls @ 100 mls/hr IV Q24H [facility] Piperacillin/Tazobactam/ (Dextrose 4.5 gm/ Premix) 100 mls @ 200 mls/hr IV Q6H [facility] Insulin Aspart (Novolog) 0 unit SUBCUT QIDACANDBED [facility] PRN Reason: Protocol Last Admin: 09/20/17 08:06 Dose: Not Given Lisinopril (Prinivil) 10 mg PO DAILY [facility] Last Admin: 09/20/17 08:19 Dose: 10 mg Magnesium Hydroxide (Milk Of Magnesia) 30 ml PO Q12H PRN PRN Reason: Constipation Metoprolol Tartrate (Lopressor) 25 mg PO BID [facility] Last Admin: 09/20/17 08:18 Dose: 25 mg Ondansetron HCl (Zofran) 4 mg IV Q4H PRN PRN Reason: Nausea/Vomiting Oxycodone HCl (Oxycodone) 5 mg PO Q4H PRN PRN Reason: Pain (moderate 4-6) Polyethylene Glycol (Miralax) 17 gm PO DAILY PRN PRN Reason: Constipation Sodium Chloride (Saline Flush) 10 ml FLUSH ASDIRECTED PRN PRN Reason: Keep Vein Open Discontinued Medications Aspirin (Aspirin) 324 mg PO ONETIME ONE Stop: 09/19/17 12:35 Last Admin: 09/19/17 12:40 Dose: Not Given Enoxaparin Sodium (Lovenox) 40 mg SUBCUT DAILY [facility] Last Admin: 09/19/17 16:48 Dose: 40 mg Lactated Ringer's (Ringers, Lactated) 1,000 mls @ 999 mls/hr IV ASDIRECTED [facility] Last Admin: 09/19/17 12:51 Dose: 999 mls/hr Levofloxacin/Dextrose 750 mg/ (Premix) 150 mls @ 100 mls/hr IV Q24H [facility] Last Admin: 09/19/17 12:52 Dose: 100 mls/hr Piperacillin Sod/Tazobactam (Sod 3.375 gm/ Sodium Chloride) 50 mls @ 100 mls/ hr IV Q6H [facility] Lactated Ringer's (Ringers, Lactated) 1,000 mls @ 500 mls/hr IV BOLUS ONE Stop: 09/19/17 16:33 Last Admin: 09/19/17 15:31 Dose: 500 mls/hr Lactated Ringer's (Ringers, Lactated) 500 mls @ 500 mls/hr IV .BOLUS [facility] Stop: 09/19/17 18:57 Last Admin: 09/19/17 16:49 Dose: 500 mls/hr Lactated Ringer's (Ringers, Lactated) 1,000 mls @ 125 mls/hr IV ASDIRECTED [facility] Last Admin: 09/20/17 02:10 Dose: 125 mls/hr Piperacillin Sod/Tazobactam (Sod 4.5 gm/ Sodium Chloride) 100 mls @ 200 mls/hr IV Q6H [facility] Last Admin: 09/20/17 04:24 Dose: 200 mls/hr Sodium Chloride (Normal Saline) Confirm Administered Dose 100 mls @ as directed .ROUTE .STK-MED ONE Stop: 09/20/17 04:18 Last Admin: 09/20/17 04:24 Dose: Not Given Methylprednisolone Sodium Succinate (Solu-Medrol) 125 mg IVPUSH ONETIME ONE Stop: 09/19/17 12:33 Last Admin: 09/19/17 12:51 Dose: 125 mg Sodium Chloride (Saline Flush) 10 ml FLUSH ASDIRECTED PRN PRN Reason: Keep Vein Open Last Admin: 09/19/17 12:51 Dose: 10 ml - Exam Quality Assessment: Supplemental Oxygen, DVT Prophylaxis General: Alert, Oriented, Cooperative, Mild Distress Lungs: Normal Respiratory Effort, Decreased Breath Sounds. No: Rales, Rhonchi, Rub, Stridor, Wheezing Cardiovascular: Regular Rate, Regular Rhythm, No Murmurs GI/Abdominal Exam: Soft, Non-Tender, No Organomegaly, No Distention Extremities: Non-Tender, No Pedal Edema Skin: Warm, Dry, Intact - Problem List Review Problem List Initiated/Reviewed/Updated: Yes - My Orders Last 24 Hours: My Active Orders 09/19/17 14:56 Resuscitation Status Routine 09/19/17 15:56 Patient Status [ADT] Routine Ambulate [RC] QID Blood Glucose Check, Bedside [RC] QIDACANDBED Cardiac Monitoring [RC] Q6H Diabetes Education [RC] Click to Edit Height and Weight [RC] 0511 Intake and Output [RC] QSHIFT Notify Provider Vital Signs [RC] ASDIRECTED Notify Provider [RC] PRN Oxygen Therapy [RC] Q12H Pulse Oximetry [RC] CONTINUOUS RT Aerosol Therapy [RC] ASDIRECTED RT BiPAP/CPAP [RC] ASDIRECTED Up With Assistance [RC] ASDIRECTED Up to Chair [RC] QID Vital Signs [RC] Q2H Acetaminophen [Tylenol] 650 mg PO Q4H PRN Albuterol [Proventil Neb Soln] 2.5 mg NEB Q4H PRN Dextrose 50% in Water 50 ml IV ONETIME PRN Dextrose [Glutose 15] 15 gm PO ONETIME PRN Docusate Sodium [Colace] 100 mg PO BID PRN Magnesium Hydroxide [Milk of Magnesia] 30 ml PO Q12H PRN Metoprolol Tartrate [Lopressor] 25 mg PO BID Ondansetron [Zofran] 4 mg IV Q4H PRN Polyethylene Glycol 3350 [MiraLAX] 17 gm PO DAILY PRN Sodium Chloride 0.9% [Saline Flush] 10 ml FLUSH ASDIRECTED PRN oxyCODONE 5 mg PO Q4H PRN Give supplemental Oxygen PRN [COMM] Routine Peripheral IV Insertion Adult [OM.PC] Routine 09/19/17 16:15 Albuterol/Ipratropium [DuoNeb 3.0-0.5 MG/3 ML] 3 ml NEB QIDRT 09/19/17 17:00 Insulin Aspart [NovoLOG] See Protocol SUBCUT QIDACANDBED 09/19/17 Lunch 2 Gram Sodium Diet [DIET] Consistent Carbohydrate Diet [DIET] 09/20/17 05:11 Chest 1V Frontal [CR] AM 09/20/17 05:45 GLYCOSYLATED HEMOGLOBIN,HGBA1C [CHEM] AM 09/20/17 08:59 Convert IV to Saline Lock [OM.PC] Routine 09/20/17 09:00 Lisinopril [Prinivil] 10 mg PO DAILY 09/20/17 10:00 Piperacillin/Tazobactam/Dext [Zosyn in Dextrose Iso-Osmotic] 4.5 gm Premix Bag 1 bag IV Q6H 09/20/17 13:00 Levofloxacin/Dextrose 5%-Water [Levaquin in D5W 750 MG/150 ML] 750 mg Premix Bag 1 bag IV Q24H 09/20/17 16:00 Enoxaparin [Lovenox] 40 mg SUBCUT Q24H 09/21/17 05:00 BASIC METABOLIC PANEL,BMP [CHEM] Timed CBC WITH AUTO DIFF [HEME] Timed 09/21/17 07:30 GLUCOSE POC LAB TO COLLECT [POC] QIDACANDBED 09/21/17 08:00 Echo Comp wo Cont [US] Urgent 09/21/17 11:30 GLUCOSE POC LAB TO COLLECT [POC] QIDACANDBED 09/21/17 16:30 GLUCOSE POC LAB TO COLLECT [POC] QIDACANDBED 09/21/17 21:00 GLUCOSE POC LAB TO COLLECT [POC] QIDACANDBED 09/22/17 07:30 GLUCOSE POC LAB TO COLLECT [POC] QIDACANDBED 09/22/17 11:30 GLUCOSE POC LAB TO COLLECT [POC] QIDACANDBED 09/22/17 16:30 GLUCOSE POC LAB TO COLLECT [POC] QIDACANDBED 09/22/17 21:00 GLUCOSE POC LAB TO COLLECT [POC] QIDACANDBED 09/23/17 07:30 GLUCOSE POC LAB TO COLLECT [POC] QIDACANDBED 09/23/17 11:30 GLUCOSE POC LAB TO COLLECT [POC] QIDACANDBED 09/23/17 16:30 GLUCOSE POC LAB TO COLLECT [POC] QIDACANDBED 09/23/17 21:00 GLUCOSE POC LAB TO COLLECT [POC] QIDACANDBED 09/24/17 07:30 GLUCOSE POC LAB TO COLLECT [POC] QIDACANDBED 09/24/17 11:30 GLUCOSE POC LAB TO COLLECT [POC] QIDACANDBED 09/24/17 16:30 GLUCOSE POC LAB TO COLLECT [POC] QIDACANDBED 09/24/17 21:00 GLUCOSE POC LAB TO COLLECT [POC] QIDACANDBED - Plan Plan:: ASSESSMENT AND PLAN PNEUMONIA WITH SEPSIS-symptoms of respiratory tract infection over the past 2 weeks, significantly worse over the past few days. Sepsis has resolved and respiratory status has stabilized since admission. -Blood cultures pending -Sputum culture pending -Saline lock IV -IV Levaquin and Zosyn pending culture results HYPOXIC RESPIRATORY FAILURE-secondary to pneumonia and underlying COPD, improved since admission -Supplemental oxygen as needed -Management of pneumonia as above -Noninvasive positive pressure ventilation as needed -Nebulized albuterol and duo nebs COPD EXACERBATION -Management as above TYPE 2 DIABETES MELLITUS -4 times a day glucometers -Low-dose sliding scale NovoLog CORONARY ARTERY DISEASE-he did experience symptoms of chest pain this morning when picked up by EMS. Since then has had no further pain, initial EKG and troponin levels unremarkable for ischemia or infarct. -Currently on no medical therapy, will add low-dose beta any and DEMETRIUS inhibitor -Serial troponin levels -Consider stress test when respiratory status has stabilized MAINTENANCE ISSUES -DVT prophylaxis; Lovenox 40 mg subcutaneous daily -GI prophylaxis; not indicated -Weller catheter; not indicated -Nutrition; consistent carb 2 g sodium diet -Nicotine dependence; not required CODE STATUS-FULL CODE ADMISSION STATUS-patient will be admitted to inpatient status, expect at least a 2 night hospital stay for evaluation and management of problems as outlined above. At the time of this admission I do not reasonably expected evaluation and management of this problem will require more than a 96 hour hospital stay. DISPOSITION-anticipate discharge to home after the hospital stay. PRIMARY CARE PROVIDER-currently does not have a primary care provider
[2017-09-20] MEDS: Piperacillin/Tazobactam/Dext 4.5 GM in Premix Bag 1 BAG IV SCH ×3 (09:14→21:49)
[2017-09-20] MEDS: Levofloxacin/Dextrose 5%-Water 750 MG in Premix Bag 1 BAG IV SCH (12:42)
[2017-09-20] MEDS: Enoxaparin 40 MG/0.4 ML Syringe SUBCUT SCH (16:07)
[2017-09-21] MEDS: Piperacillin/Tazobactam/Dext 4.5 GM in Premix Bag 1 BAG IV SCH ×4 (04:37→21:26)
[2017-09-21] MEDS: Albuterol/Ipratropium 3.0-0.5 MG/3 ML Neb Soln NEB SCH ×4 (07:05→21:35)
[2017-09-21] MEDS: Insulin Aspart 100 Units/ML 3 ML Pen SUBCUT SCH (07:44)
[2017-09-21] MEDS: Lisinopril 10 MG Tab PO SCH (08:12)
[2017-09-21] MEDS: Metoprolol Tartrate 25 MG Tab PO SCH ×2 (08:12→21:31)
[2017-09-21] MEDS ORDERED: Benzonatate 100 MG Cap PO PRN (09:05)
[2017-09-21] MEDS ORDERED: guaiFENesin/Dextromethorphan 100-10 MG/5 ML Soln 10 ML Cup PO PRN (09:05)
--- NOTE | 2017-09-21 09:08 | PCM.PN ---
- General Info Date of Service: 09/21/17 Functional Status: Reports: Pain Controlled, Tolerating Diet - Review of Systems General: Denies: Fever Pulmonary: Reports: Shortness of Breath, Pleuritic Chest Pain, Cough Systems Review Comment:: No acute events overnight. He did not require noninvasive ventilation overnight. Oxygenation stable with small quantity of supplemental oxygen. Still having some right-sided chest pain but this has been improving. Moderate cough which has been bothersome. Vital signs have been stable. Sputum culture growing gram-positive cocci with identification pending. - Patient Data Vitals - Most Recent: Last Vital Signs Temp 36.7 C 09/21/17 07:15 Pulse 88 09/21/17 08:12 Resp 21 H 09/21/17 07:15 BP 139/83 09/21/17 08:29 Pulse Ox 95 09/21/17 07:15 Weight - Most Recent: 105.687 kg I&O - Last 24 Hours: Intake & Output 09/20/17 09/21/17 09/21/17 22:59 06:59 14:59 Intake Total 1544 700 600 Output Total 200 2000 200 Balance 1344 -1300 400 Lab Results Last 24 Hours: Laboratory Results - last 24 hr 09/21/17 09/21/17 Range/Units 05:34 05:34 WBC 15.4 H (4.5-11.0) K/uL RBC 4.72 (4.30-5.90) M/uL Hgb 14.0 (12.0-15.0) g/dL Hct 41.5 (40.0-54.0) % MCV 88 (80-98) fL MCH 30 (27-31) pg MCHC 34 (32-36) % Plt Count 556 H (150-400) K/uL Neut % (Auto) 80 H (36-66) % Lymph % (Auto) 12 L (24-44) % Stokes % (Auto) 7 H (2-6) % Eos % (Auto) 1 L (2-4) % Baso % (Auto) 0 (0-1) % Sodium 141 (140-148) mmol/L Potassium 4.0 (3.6-5.2) mmol/L Chloride 103 (100-108) mmol/L Carbon Dioxide 30 (21-32) mmol/L Anion Gap 7.8 (5.0-14.0) mmol/L BUN 13 (7-18) mg/dL Creatinine 0.9 (0.8-1.3) mg/dL Est Cr Clr Drug Dosing 87.28 mL/min Estimated GFR (MDRD) > 60 (>60) Glucose 93 (74-106) mg/dL Calcium 8.2 L (8.5-10.1) mg/dL Federico Results Last 24 Hours: Microbiology 09/19/17 16:17 Gram Stain - Final Sputum - Expectorated Respiratory Culture - Preliminary Med Orders - Current: Current Medications Acetaminophen (Tylenol) 650 mg PO Q4H PRN PRN Reason: Pain (Mild 1-3)/fever Albuterol (Proventil Neb Soln) 2.5 mg NEB Q4H PRN PRN Reason: Shortness Of Breath/wheezing Albuterol/Ipratropium (Duoneb 3.0-0.5 Mg/3 Ml) 3 ml NEB QIDRT [facility] Last Admin: 09/21/17 07:05 Dose: 3 ml Benzonatate (Tessalon Perles) 100 mg PO TID PRN PRN Reason: Cough Dextrose (Glutose 15) 15 gm PO ONETIME PRN PRN Reason: Hypoglycemia Dextrose/Water (Dextrose 50% In Water) 50 ml IV ONETIME PRN PRN Reason: Hypoglycemia Docusate Sodium (Colace) 100 mg PO BID PRN PRN Reason: Constipation Last Admin: 09/20/17 08:18 Dose: 100 mg Enoxaparin Sodium (Lovenox) 40 mg SUBCUT Q24H [facility] [place] Last Admin: 09/20/17 16:07 Dose: 40 mg Levofloxacin/Dextrose 750 mg/ (Premix) 150 mls @ 100 mls/hr IV Q24H [facility] [place] Last Admin: 09/20/17 12:42 Dose: 100 mls/hr Piperacillin/Tazobactam/ (Dextrose 4.5 gm/ Premix) 100 mls @ 200 mls/hr IV Q6H [facility] [place] Last Admin: 09/21/17 04:37 Dose: 200 mls/hr Lisinopril (Prinivil) 10 mg PO DAILY [facility] [place] Last Admin: 09/21/17 08:12 Dose: 10 mg Magnesium Hydroxide (Milk Of Magnesia) 30 ml PO Q12H PRN PRN Reason: Constipation Metoprolol Tartrate (Lopressor) 25 mg PO BID [facility] [place] Last Admin: 09/21/17 08:12 Dose: 25 mg Ondansetron HCl (Zofran) 4 mg IV Q4H PRN PRN Reason: Nausea/Vomiting Oxycodone HCl (Oxycodone) 5 mg PO Q4H PRN PRN Reason: Pain (moderate 4-6) Polyethylene Glycol (Miralax) 17 gm PO DAILY PRN PRN Reason: Constipation Sodium Chloride (Saline Flush) 10 ml FLUSH ASDIRECTED PRN PRN Reason: Keep Vein Open Discontinued Medications Aspirin (Aspirin) 324 mg PO ONETIME ONE Stop: 09/19/17 12:35 Last Admin: 09/19/17 12:40 Dose: Not Given Enoxaparin Sodium (Lovenox) 40 mg SUBCUT DAILY [facility] [place] Last Admin: 09/19/17 16:48 Dose: 40 mg Lactated Ringer's (Ringers, Lactated) 1,000 mls @ 999 mls/hr IV ASDIRECTED [facility] [place] Last Admin: 09/19/17 12:51 Dose: 999 mls/hr Levofloxacin/Dextrose 750 mg/ (Premix) 150 mls @ 100 mls/hr IV Q24H [facility] [place] Last Admin: 09/19/17 12:52 Dose: 100 mls/hr Piperacillin Sod/Tazobactam (Sod 3.375 gm/ Sodium Chloride) 50 mls @ 100 mls/ hr IV Q6H [facility] [place] Last Admin: 09/21/17 07:57 Dose: Not Given Lactated Ringer's (Ringers, Lactated) 1,000 mls @ 500 mls/hr IV BOLUS ONE Stop: 09/19/17 16:33 Last Admin: 09/19/17 15:31 Dose: 500 mls/hr Lactated Ringer's (Ringers, Lactated) 500 mls @ 500 mls/hr IV .BOLUS [facility] [place] Stop: 09/19/17 18:57 Last Admin: 09/19/17 16:49 Dose: 500 mls/hr Lactated Ringer's (Ringers, Lactated) 1,000 mls @ 125 mls/hr IV ASDIRECTED [facility] [place] Last Admin: 09/20/17 02:10 Dose: 125 mls/hr Piperacillin Sod/Tazobactam (Sod 4.5 gm/ Sodium Chloride) 100 mls @ 200 mls/hr IV Q6H [facility] [place] Last Admin: 09/20/17 04:24 Dose: 200 mls/hr Sodium Chloride (Normal Saline) Confirm Administered Dose 100 mls @ as directed .ROUTE .STK-MED ONE Stop: 09/20/17 04:18 Last Admin: 09/20/17 04:24 Dose: Not Given Insulin Aspart (Novolog) 0 unit SUBCUT QIDACANDBED ANTONINA PRN Reason: Protocol Last Admin: 09/21/17 07:44 Dose: Not Given Methylprednisolone Sodium Succinate (Solu-Medrol) 125 mg IVPUSH ONETIME ONE Stop: 09/19/17 12:33 Last Admin: 09/19/17 12:51 Dose: 125 mg Sodium Chloride (Saline Flush) 10 ml FLUSH ASDIRECTED PRN PRN Reason: Keep Vein Open Last Admin: 09/19/17 12:51 Dose: 10 ml - Exam Quality Assessment: Supplemental Oxygen General: Alert, Oriented, Cooperative, No Acute Distress Neck: Supple Lungs: Normal Respiratory Effort, Decreased Breath Sounds (right lung base), Rales (few right lung base) Cardiovascular: Regular Rate, Regular Rhythm GI/Abdominal Exam: Soft, No Distention Extremities: No Pedal Edema Skin: Warm, Dry Psy/Mental Status: Alert, Normal Affect - Problem List Review Problem List Initiated/Reviewed/Updated: Yes - My Orders Last 24 Hours: My Active Orders 09/21/17 09:05 Transfer Patient (Change bed) [ADT] Routine Benzonatate [Tessalon Perles] 100 mg PO TID PRN Dextromethorphan/guaiFENesin [Robitussin DM] 10 ml PO Q4H PRN 09/21/17 09:06 Discontinue Telemetry Monitoring [Cardiac Monitoring Discontinue] [RC] Click to Edit 09/22/17 05:00 BASIC METABOLIC PANEL,BMP [CHEM] Timed CBC W/O DIFF,HEMOGRAM [HEME] Timed (1) - Plan Plan:: ASSESSMENT AND PLAN PNEUMONIA WITH SEPSIS - sepsis has resolved. Did not require noninvasive ventilation overnight. Still requiring supplemental oxygen but clinically and feeling better. -Blood cultures pending -Sputum culture pending -Saline lock IV -IV levofloxacin and Pip/Tazo pending culture results HYPOXIC RESPIRATORY FAILURE - secondary to pneumonia and underlying COPD. slowly improving. -Supplemental oxygen as needed -Management of pneumonia as above -Nebulized albuterol and duo nebs COPD EXACERBATION - steadily improving -Management as above TYPE 2 DIABETES MELLITUS - sugars normal. - discontinue insulin CORONARY ARTERY DISEASE - no active symptoms to suggest ischemic disease. Troponins were normal. Right-sided chest pain likely related to his pneumonia. -Currently on no medical therapy, will add low-dose beta any and DEMETRIUS inhibitor MAINTENANCE ISSUES -DVT prophylaxis; enoxaparin 40 mg subcutaneous daily -GI prophylaxis; not indicated -Nutrition; consistent carb 2 g sodium diet -Nicotine dependence; not required DISPOSITION - anticipate discharge to home after the hospital stay. He is stable for transfer out of the intensive care unit today. Leobardo Garcia M.D.
--- NOTE | 2017-09-21 09:47 | CR ---
Portable chest Comparison: None. Patient has had a prior median sternotomy. There is fairly diffuse infiltrate throughout the right shon ng. Infiltrate is increase in the right base. Left lung is unremarkable. The heart and vascular struc tures appear within normal limits. Impression: 1. Diffuse patchy infiltrate right lung.
--- NOTE | 2017-09-21 09:50 | CR ---
Portable chest Comparison: Previous day. Again demonstrated is diffuse infiltrate throughout the right lung. There is increased density in the right lung base. The heart is stable. There is mild vascular engorgement. Impression: 1. Diffuse right lung infiltrate with mild increased density in right base.
[2017-09-21] MEDS: Levofloxacin/Dextrose 5%-Water 750 MG in Premix Bag 1 BAG IV SCH (13:13)
[2017-09-21] MEDS: Acetaminophen 325 MG Tab PO PRN (14:55)
[2017-09-21] MEDS: Enoxaparin 40 MG/0.4 ML Syringe SUBCUT SCH (16:08)
[2017-09-22] MEDS: Piperacillin/Tazobactam/Dext 4.5 GM in Premix Bag 1 BAG IV SCH (04:31)
[2017-09-22] MEDS: Albuterol/Ipratropium 3.0-0.5 MG/3 ML Neb Soln NEB SCH ×4 (07:17→20:45)
[2017-09-22] MEDS: Metoprolol Tartrate 25 MG Tab PO SCH ×2 (08:49→20:45)
[2017-09-22] MEDS: Lisinopril 10 MG Tab PO SCH (08:50)
--- NOTE | 2017-09-22 10:06 | PCM.PN ---
- General Info Date of Service: 09/22/17 Functional Status: Reports: Pain Controlled, Tolerating Diet - Review of Systems Pulmonary: Reports: Shortness of Breath, Cough Systems Review Comment:: No acute events overnight. Still requiring 1.5-2 L of supplemental oxygen. He did not have any fevers overnight. Shortness of breath and right-sided pleuritic chest pain are both better today. Still gets winded with any activity but seems better today. Sputum culture grew out staph aureus. No complaints of chest pain other than the pleuritic right-sided pain. - Patient Data Vitals - Most Recent: Last Vital Signs Temp 36.5 C 09/22/17 07:00 Pulse 96 09/22/17 08:49 Resp 18 09/22/17 07:00 BP 147/89 H 09/22/17 08:50 Pulse Ox 92 L 09/22/17 07:00 Weight - Most Recent: 105.687 kg I&O - Last 24 Hours: Intake & Output 09/21/17 09/22/17 09/22/17 22:59 06:59 14:59 Intake Total 1260 100 600 Output Total 400 275 Balance 860 100 325 Lab Results Last 24 Hours: Laboratory Results - last 24 hr 09/22/17 09/22/17 Range/Units 05:00 05:00 WBC 11.9 H (4.5-11.0) K/uL RBC 4.88 (4.30-5.90) M/uL Hgb 14.1 (12.0-15.0) g/dL Hct 42.8 (40.0-54.0) % MCV 88 (80-98) fL MCH 29 (27-31) pg MCHC 33 (32-36) % Plt Count 607 H (150-400) K/uL Sodium 143 (140-148) mmol/L Potassium 4.5 (3.6-5.2) mmol/L Chloride 107 (100-108) mmol/L Carbon Dioxide 29 (21-32) mmol/L Anion Gap 7.0 (5.0-14.0) mmol/L BUN 9 (7-18) mg/dL Creatinine 0.8 (0.8-1.3) mg/dL Est Cr Clr Drug Dosing 97.87 mL/min Estimated GFR (MDRD) > 60 (>60) Glucose 99 (74-106) mg/dL Calcium 8.4 L (8.5-10.1) mg/dL Federico Results Last 24 Hours: Microbiology 09/19/17 16:17 Gram Stain - Final Sputum - Expectorated Respiratory Culture - Final Staphylococcus Aureus Med Orders - Current: Current Medications Acetaminophen (Tylenol) 650 mg PO Q4H PRN PRN Reason: Pain (Mild 1-3)/fever Last Admin: 09/21/17 14:55 Dose: 650 mg Albuterol (Proventil Neb Soln) 2.5 mg NEB Q4H PRN PRN Reason: Shortness Of Breath/wheezing Albuterol/Ipratropium (Duoneb 3.0-0.5 Mg/3 Ml) 3 ml NEB QIDRT [facility] Last Admin: 09/22/17 07:17 Dose: 3 ml Benzonatate (Tessalon Perles) 100 mg PO TID PRN PRN Reason: Cough Dextrose (Glutose 15) 15 gm PO ONETIME PRN PRN Reason: Hypoglycemia Dextrose/Water (Dextrose 50% In Water) 50 ml IV ONETIME PRN PRN Reason: Hypoglycemia Docusate Sodium (Colace) 100 mg PO BID PRN PRN Reason: Constipation Last Admin: 09/20/17 08:18 Dose: 100 mg Doxycycline Hyclate (Vibramycin) 100 mg PO BID [facility] Enoxaparin Sodium (Lovenox) 40 mg SUBCUT Q24H [facility] Last Admin: 09/21/17 16:08 Dose: 40 mg Guaifenesin/Dextromethorphan (Robitussin Dm) 10 ml PO Q4H PRN PRN Reason: Cough Lisinopril (Prinivil) 10 mg PO DAILY [facility] Last Admin: 09/22/17 08:50 Dose: 10 mg Magnesium Hydroxide (Milk Of Magnesia) 30 ml PO Q12H PRN PRN Reason: Constipation Metoprolol Tartrate (Lopressor) 25 mg PO BID [facility] Last Admin: 09/22/17 08:49 Dose: 25 mg Ondansetron HCl (Zofran) 4 mg IV Q4H PRN PRN Reason: Nausea/Vomiting Oxycodone HCl (Oxycodone) 5 mg PO Q4H PRN PRN Reason: Pain (moderate 4-6) Polyethylene Glycol (Miralax) 17 gm PO DAILY PRN PRN Reason: Constipation Sodium Chloride (Saline Flush) 10 ml FLUSH ASDIRECTED PRN PRN Reason: Keep Vein Open Discontinued Medications Aspirin (Aspirin) 324 mg PO ONETIME ONE Stop: 09/19/17 12:35 Last Admin: 09/19/17 12:40 Dose: Not Given Enoxaparin Sodium (Lovenox) 40 mg SUBCUT DAILY [facility] Last Admin: 09/19/17 16:48 Dose: 40 mg Lactated Ringer's (Ringers, Lactated) 1,000 mls @ 999 mls/hr IV ASDIRECTED [facility] Last Admin: 09/19/17 12:51 Dose: 999 mls/hr Levofloxacin/Dextrose 750 mg/ (Premix) 150 mls @ 100 mls/hr IV Q24H [facility] Last Admin: 09/19/17 12:52 Dose: 100 mls/hr Piperacillin Sod/Tazobactam (Sod 3.375 gm/ Sodium Chloride) 50 mls @ 100 mls/ hr IV Q6H [facility] Last Admin: 09/21/17 07:57 Dose: Not Given Lactated Ringer's (Ringers, Lactated) 1,000 mls @ 500 mls/hr IV BOLUS ONE Stop: 09/19/17 16:33 Last Admin: 09/19/17 15:31 Dose: 500 mls/hr Lactated Ringer's (Ringers, Lactated) 500 mls @ 500 mls/hr IV .BOLUS [facility] Stop: 09/19/17 18:57 Last Admin: 09/19/17 16:49 Dose: 500 mls/hr Lactated Ringer's (Ringers, Lactated) 1,000 mls @ 125 mls/hr IV ASDIRECTED [facility] Last Admin: 09/20/17 02:10 Dose: 125 mls/hr Levofloxacin/Dextrose 750 mg/ (Premix) 150 mls @ 100 mls/hr IV Q24H [facility] Last Admin: 09/21/17 13:13 Dose: 100 mls/hr Piperacillin Sod/Tazobactam (Sod 4.5 gm/ Sodium Chloride) 100 mls @ 200 mls/hr IV Q6H [facility] Last Admin: 09/20/17 04:24 Dose: 200 mls/hr Sodium Chloride (Normal Saline) Confirm Administered Dose 100 mls @ as directed .ROUTE .STK-MED ONE Stop: 09/20/17 04:18 Last Admin: 09/20/17 04:24 Dose: Not Given Piperacillin/Tazobactam/ (Dextrose 4.5 gm/ Premix) 100 mls @ 200 mls/hr IV Q6H [facility] Last Admin: 09/22/17 04:31 Dose: 200 mls/hr Insulin Aspart (Novolog) 0 unit SUBCUT QIDACANDBED [facility] PRN Reason: Protocol Last Admin: 09/21/17 07:44 Dose: Not Given Methylprednisolone Sodium Succinate (Solu-Medrol) 125 mg IVPUSH ONETIME ONE Stop: 09/19/17 12:33 Last Admin: 09/19/17 12:51 Dose: 125 mg Sodium Chloride (Saline Flush) 10 ml FLUSH ASDIRECTED PRN PRN Reason: Keep Vein Open Last Admin: 09/19/17 12:51 Dose: 10 ml - Exam Quality Assessment: Supplemental Oxygen General: Alert, Oriented, Cooperative, No Acute Distress Lungs: Normal Respiratory Effort, Decreased Breath Sounds (mild right lung base) , Crackles (few right lung base) Cardiovascular: Regular Rate, Regular Rhythm GI/Abdominal Exam: Soft, Non-Tender Extremities: No Pedal Edema Psy/Mental Status: Alert, Normal Affect - Problem List Review Problem List Initiated/Reviewed/Updated: Yes - My Orders Last 24 Hours: My Active Orders 09/22/17 09:15 Doxycycline [Vibramycin] 100 mg PO BID 09/22/17 10:04 PT Evaluation and Treatment [CONS] Routine 09/23/17 05:00 CBC W/O DIFF,HEMOGRAM [HEME] Timed (1) - Plan Plan:: ASSESSMENT AND PLAN STAPH AUREUS PNEUMONIA WITH SEPSIS - sepsis has resolved. Clinically improving but still requiring supplemental oxygen. Sputum culture did grow out staph aureus. Blood cultures are negative. -Change antibiotics to doxycycline HYPOXIC RESPIRATORY FAILURE - secondary to pneumonia and underlying COPD. slowly improving but still needing supplemental oxygen. -Supplemental oxygen as needed -Management of pneumonia as above -Nebulized albuterol and duo nebs COPD EXACERBATION - steadily improving, no wheezing today. -Management as above TYPE 2 DIABETES MELLITUS - sugars normal. - discontinue insulin CORONARY ARTERY DISEASE - no active symptoms to suggest ischemic disease. Right- sided chest pain likely related to his pneumonia. -Currently on no medical therapy, will add low-dose beta any and DEMETRIUS inhibitor MAINTENANCE ISSUES -DVT prophylaxis; enoxaparin 40 mg subcutaneous daily -GI prophylaxis; not indicated -Nutrition; consistent carb 2 g sodium diet -Nicotine dependence; not required DISPOSITION - anticipate discharge to home after the hospital stay. Leobardo Garcia M.D.
[2017-09-22] MEDS: Doxycycline 100 MG Cap PO SCH ×2 (10:33→20:45)
[2017-09-22] MEDS: Enoxaparin 40 MG/0.4 ML Syringe SUBCUT SCH (15:07)
[2017-09-22] MEDS: Acetaminophen 325 MG Tab PO PRN (18:41)
[2017-09-23] MEDS: Albuterol/Ipratropium 3.0-0.5 MG/3 ML Neb Soln NEB SCH ×2 (07:09→11:14)
[2017-09-23] MEDS: Metoprolol Tartrate 25 MG Tab PO SCH (08:19)
[2017-09-23] MEDS: Lisinopril 10 MG Tab PO SCH (08:19)
[2017-09-23] MEDS: Doxycycline 100 MG Cap PO SCH (08:19)
--- NOTE | 2017-09-23 09:06 | PCM.DCSUM1 ---
Discharge Summary - Hospital Course Brief History: 62-year-old male with history of coronary artery disease, diabetes and COPD who presented with cough, shortness of breath and weakness. He was admitted for management of right lung pneumonia with sepsis. - Discharge Data Discharge Date: 09/23/17 Discharge Disposition: Home, Self-Care 01 Condition: Good - Discharge Diagnosis/Problem(s) (1) Right lower lobe pneumonia SNOMED Code(s): 166488089 ICD Code: J18.1 - LOBAR PNEUMONIA, UNSPECIFIED ORGANISM Status: Acute Current Visit: Yes Qualifiers: Pneumonia type: due to methicillin-sensitive Staphylococcus aureus (MSSA) Qualified Code(s): J15.211 - Pneumonia due to Methicillin susceptible Staphylococcus aureus (2) Sepsis SNOMED Code(s): 37672890 ICD Code: A41.9 - SEPSIS, UNSPECIFIED ORGANISM Status: Acute Current Visit: Yes Qualifiers: Sepsis type: methicillin susceptible Staphylococcus aureus Qualified Code(s ): A41.01 - Sepsis due to Methicillin susceptible Staphylococcus aureus (3) Type 2 diabetes mellitus SNOMED Code(s): 82644461 ICD Code: E11.9 - TYPE 2 DIABETES MELLITUS WITHOUT COMPLICATIONS Status: Chronic Current Visit: No Qualifiers: Diabetes mellitus complication status: without complication Diabetes mellitus roasterman insulin use: without roasterman use Qualified Code(s): E11.9 - Type 2 diabetes mellitus without complications (4) COPD (chronic obstructive pulmonary disease) SNOMED Code(s): 26548243 ICD Code: J44.9 - CHRONIC OBSTRUCTIVE PULMONARY DISEASE, UNSPECIFIED Status : Chronic Current Visit: No Qualifiers: COPD type: unspecified COPD Qualified Code(s): J44.9 - Chronic obstructive pulmonary disease, unspecified (5) CAD (coronary artery disease) SNOMED Code(s): 19015722 ICD Code: I25.10 - ATHSCL HEART DISEASE OF [place] CORONARY ARTERY W/O ANG PCTRS Status: Chronic Current Visit: No Qualifiers: Coronary Disease-Associated Artery/Lesion type: [place] artery [place] vs. transplanted heart: [place] heart Associated angina: without angina Qualified Code(s): I25.10 - Atherosclerotic heart disease of [place] coronary artery without angina pectoris - Patient Summary/Data Consults: Consultations 09/22/17 10:04 PT Evaluation and Treatment [CONS] Routine Please Evaluate and Treat. PT Reason for Consult: Strengthening This query below is only for informational purposes and is not editable. Admission Diagnosis/Problem: Pneumonia Hospital Course: Ed presented to the emergency room with 2 weeks of progressive cough, shortness of breath and weakness. He also had right-sided chest pain. Workup in the emergency room was suggestive of a right lower lobe pneumonia as well as sepsis and hypoxic respiratory failure. He was tachycardic, tachypneic and had hypoxic respiratory failure. He was started on noninvasive ventilation as well as broad- spectrum antibiotics and cultures were obtained. He was admitted to the intensive care unit for further management. Overnight he had fairly impressive improvement but did require noninvasive ventilation until early in the morning after admission. His heart rate improved overnight and blood pressures remained stable. He did not require initial noninvasive ventilation after the first night. Over the next couple of days he had ongoing clinical improvement. Symptomatically he was feeling better and his white count and oxygenation were both improving. Fever curve improved and heart rate normalized. Broad-spectrum antibiotics were continued until his respiratory culture returned growing methicillin sensitive staph aureus. At this point he had achieved significant clinical improvement and we were able to transition to oral doxycycline. He continued to show improvement even after this oral antibiotic was initiated. We were able to wean him off supplemental oxygen and he has maintained normal oxygen saturations since that time. He has been working with physical therapy and is up and moving around. He is not hypoxic with activity and has been stable on his feet. His vital signs have remained stable throughout the course of the hospital stay after the initial resolution of his tachycardia. Now that he is off supplemental oxygen and clinically doing well I believe he is safe for outpatient management. He'll be discharged home and will be staying with a friend for a few days. He is going to be applying for a new living situation and is hoping to move into an apartment in the next few days. He would benefit from close clinical follow-up to ensure that he continues to improve. - Patient Instructions Diet: Heart Healthy Diet Activity: As Tolerated Showering/Bathing: May Shower Notify Provider of: Fever, Increased Pain, Nausea and/or Vomiting Other/Special Instructions: 1. You were in the hospital for management of a right lower lung pneumonia caused by methicillin sensitive staph aureus. You have been improving with our antibiotic therapy. I do recommend 12 additional doses of antibiotics. You should take doxycycline 100 mg twice daily. You should take this medication with food to avoid stomach upset. You may resume your regular activities as tolerated but if you start to become short of breath or tired you should take a break. You have some pain on the right side of your chest because of the pneumonia. This pain may linger for days or maybe even a couple of weeks but should be getting better each day. 2. I have provided prescriptions for metoprolol and lisinopril. These medications help to keep your blood pressure at a safe level and keep your heart healthy. 3. Please seek medical attention if you develop fever greater than 101, have sudden onset of shortness of breath or if you have worsening or severe chest pain. - Discharge Plan Prescriptions/Med Rec: Doxycycline Calcium [IMW: Doxycycline] 100 mg PO BID #12 capsule Lisinopril [Prinivil] 10 mg PO DAILY #30 tablet Metoprolol Succinate 50 mg PO DAILY #30 tab.er.24h Home Medications: Home Meds Doxycycline Calcium [IMW: Doxycycline] 100 mg PO BID #12 capsule 09/23/17 [Rx] Lisinopril [Prinivil] 10 mg PO DAILY #30 tablet 09/23/17 [Rx] Metoprolol Succinate 50 mg PO DAILY #30 tab.er.24h 09/23/17 [Rx] Patient Handouts: Doxycycline tablets or capsules, Community-Acquired Pneumonia , Adult Referrals: PCP,None [Primary Care Provider] - - Discharge Summary/Plan Comment DC Time >30 min.: No (25) - Patient Data Vitals - Most Recent: Last Vital Signs Temp 36.8 C 09/23/17 07:05 Pulse 96 09/23/17 08:19 Resp 17 09/23/17 07:05 BP 163/106 H 09/23/17 08:19 Pulse Ox 95 09/23/17 07:05 Weight - Most Recent: 93.213 kg I&O - Last 24 hours: Intake & Output 09/22/17 09/23/17 09/23/17 22:59 06:59 14:59 Intake Total 320 600 Balance 320 600 Lab Results - Last 24 hrs: Laboratory Results - last 24 hr 09/23/17 Range/Units 05:15 WBC 10.4 (4.5-11.0) K/uL RBC 5.04 (4.30-5.90) M/uL Hgb 14.6 (12.0-15.0) g/dL Hct 44.5 (40.0-54.0) % MCV 88 (80-98) fL MCH 29 (27-31) pg MCHC 33 (32-36) % Plt Count 639 H (150-400) K/uL ALEJO Results - Last 24 hrs: Microbiology 09/19/17 16:17 Gram Stain - Final Sputum - Expectorated Respiratory Culture - Final Staphylococcus Aureus Med Orders - Current: Current Medications Acetaminophen (Tylenol) 650 mg PO Q4H PRN PRN Reason: Pain (Mild 1-3)/fever Last Admin: 09/22/17 18:41 Dose: 650 mg Albuterol (Proventil Neb Soln) 2.5 mg NEB Q4H PRN PRN Reason: Shortness Of Breath/wheezing Albuterol/Ipratropium (Duoneb 3.0-0.5 Mg/3 Ml) 3 ml NEB QIDRT [facility] Last Admin: 09/23/17 07:09 Dose: 3 ml Benzonatate (Tessalon Perles) 100 mg PO TID PRN PRN Reason: Cough Dextrose (Glutose 15) 15 gm PO ONETIME PRN PRN Reason: Hypoglycemia Dextrose/Water (Dextrose 50% In Water) 50 ml IV ONETIME PRN PRN Reason: Hypoglycemia Docusate Sodium (Colace) 100 mg PO BID PRN PRN Reason: Constipation Last Admin: 09/20/17 08:18 Dose: 100 mg Doxycycline Hyclate (Vibramycin) 100 mg PO BID [facility] Last Admin: 09/23/17 08:19 Dose: 100 mg Enoxaparin Sodium (Lovenox) 40 mg SUBCUT Q24H [facility] Last Admin: 09/22/17 15:07 Dose: 40 mg Guaifenesin/Dextromethorphan (Robitussin Dm) 10 ml PO Q4H PRN PRN Reason: Cough Lisinopril (Prinivil) 10 mg PO DAILY [facility] Last Admin: 09/23/17 08:19 Dose: 10 mg Magnesium Hydroxide (Milk Of Magnesia) 30 ml PO Q12H PRN PRN Reason: Constipation Metoprolol Tartrate (Lopressor) 25 mg PO BID [facility] Last Admin: 09/23/17 08:19 Dose: 25 mg Ondansetron HCl (Zofran) 4 mg IV Q4H PRN PRN Reason: Nausea/Vomiting Oxycodone HCl (Oxycodone) 5 mg PO Q4H PRN PRN Reason: Pain (moderate 4-6) Polyethylene Glycol (Miralax) 17 gm PO DAILY PRN PRN Reason: Constipation Sodium Chloride (Saline Flush) 10 ml FLUSH ASDIRECTED PRN PRN Reason: Keep Vein Open Discontinued Medications Aspirin (Aspirin) 324 mg PO ONETIME ONE Stop: 09/19/17 12:35 Last Admin: 09/19/17 12:40 Dose: Not Given Enoxaparin Sodium (Lovenox) 40 mg SUBCUT DAILY [facility] Last Admin: 09/19/17 16:48 Dose: 40 mg Lactated Ringer's (Ringers, Lactated) 1,000 mls @ 999 mls/hr IV ASDIRECTED [facility] Last Admin: 09/19/17 12:51 Dose: 999 mls/hr Levofloxacin/Dextrose 750 mg/ (Premix) 150 mls @ 100 mls/hr IV Q24H [facility] Last Admin: 09/19/17 12:52 Dose: 100 mls/hr Piperacillin Sod/Tazobactam (Sod 3.375 gm/ Sodium Chloride) 50 mls @ 100 mls/ hr IV Q6H [facility] Last Admin: 09/21/17 07:57 Dose: Not Given Lactated Ringer's (Ringers, Lactated) 1,000 mls @ 500 mls/hr IV BOLUS ONE Stop: 09/19/17 16:33 Last Admin: 09/19/17 15:31 Dose: 500 mls/hr Lactated Ringer's (Ringers, Lactated) 500 mls @ 500 mls/hr IV .BOLUS [facility] Stop: 09/19/17 18:57 Last Admin: 09/19/17 16:49 Dose: 500 mls/hr Lactated Ringer's (Ringers, Lactated) 1,000 mls @ 125 mls/hr IV ASDIRECTED [facility] Last Admin: 09/20/17 02:10 Dose: 125 mls/hr Levofloxacin/Dextrose 750 mg/ (Premix) 150 mls @ 100 mls/hr IV Q24H [facility] Last Admin: 09/21/17 13:13 Dose: 100 mls/hr Piperacillin Sod/Tazobactam (Sod 4.5 gm/ Sodium Chloride) 100 mls @ 200 mls/hr IV Q6H [facility] Last Admin: 09/20/17 04:24 Dose: 200 mls/hr Sodium Chloride (Normal Saline) Confirm Administered Dose 100 mls @ as directed .ROUTE .STK-MED ONE Stop: 09/20/17 04:18 Last Admin: 09/20/17 04:24 Dose: Not Given Piperacillin/Tazobactam/ (Dextrose 4.5 gm/ Premix) 100 mls @ 200 mls/hr IV Q6H [facility] Last Admin: 09/22/17 04:31 Dose: 200 mls/hr Insulin Aspart (Novolog) 0 unit SUBCUT QIDACANDBED [facility] PRN Reason: Protocol Last Admin: 09/21/17 07:44 Dose: Not Given Methylprednisolone Sodium Succinate (Solu-Medrol) 125 mg IVPUSH ONETIME ONE Stop: 09/19/17 12:33 Last Admin: 09/19/17 12:51 Dose: 125 mg Sodium Chloride (Saline Flush) 10 ml FLUSH ASDIRECTED PRN PRN Reason: Keep Vein Open Last Admin: 09/19/17 12:51 Dose: 10 ml - Exam Quality Assessment: Denies: Supplemental Oxygen General: Reports: Alert, Oriented, Cooperative, No Acute Distress Lungs: Reports: Normal Respiratory Effort Cardiovascular: Reports: Regular Rate, Regular Rhythm Extremities: No Pedal Edema Psy/Mental Status: Reports: Alert, Normal Affect *Q Meaningful Use (DIS) - VTE *Q VTE Criteria *Q: - Stroke *Q Stroke Criteria *Q: - AMI *Q AMI Criteria *Q:
== END 2017-09-23 12:00 | disposition home or self-care (01) | DRG 871 ==
LOC: JP.ED 12:15 → JP.ICU 14:52 → JP.MS 09-21 11:36
PROVIDERS: ADMIT Hospitalist; ATTEND Hospitalist
DX: A41.9 Sepsis, unspecified organism (principal); J18.9 Pneumonia, unspecified organism; A41.02 Sepsis due to Methicillin resistant Staphylococcus aureus; J15.212 Pneumonia due to Methicillin resistant Staphylococcus aureus; I10 Essential (primary) hypertension; J44.9 Chronic obstructive pulmonary disease, unspecified; J96.91 Respiratory failure, unspecified with hypoxia; F17.200 Nicotine dependence, unspecified, uncomplicated; J44.0 Chronic obstructive pulmonary disease with (acute) lower respiratory infection; J44.1 Chronic obstructive pulmonary disease with (acute) exacerbation; I25.10 Atherosclerotic heart disease of native coronary artery without angina pectoris; E78.00 Pure hypercholesterolemia, unspecified; E11.9 Type 2 diabetes mellitus without complications; Z95.1 Presence of aortocoronary bypass graft; Z95.5 Presence of coronary angioplasty implant and graft; Z79.899 Other long term (current) drug therapy; Z87.891 Personal history of nicotine dependence
CPT/HCPCS: 36415; 36600; 71045 ×2; 80053; 82803; 83605; 84484; 85025; 86140; 87040 ×2; 87804 ×2; 94660; 96365; 96375; 99285; J1956; J2930; J7050; J7120; 80048; 80061; 81001; 82962; 83036; 83735; 85027; 87070; 87077; 87186; 87205; 93005; 93010; 94640; 97110-GP; 97161-GP; 97530-GP; 97535-GP; 99284; A9270-GY; J1650; J2543; J7030; J7620

== ENCOUNTER 2018-11-14 14:39 | Emergency (ER) | payer MEDICARE ==
[2018-11-14] MEDS ORDERED: Lactated Ringers 1,000 ML IV ONE ×2 (15:07→16:08)
--- NOTE | 2018-11-14 15:13 | EDM.PDOC ---
ED HPI GENERAL MEDICAL PROBLEM - General Chief Complaint: Syncope Stated Complaint: MEDICAL VIA [facility] Time Seen by Provider: 11/14/18 15:00 Source of Information: Reports: Patient, Old Records History Limitations: Reports: No Limitations - History of Present Illness INITIAL COMMENTS - FREE TEXT/NARRATIVE: 63 yo male with AODM by hx presents via EMS after a syncopal spell at home today witnessed by some friends who didn't come in with him, but who apparently called 911. Dany recalls being light-headed and having some SOB before passing out while on his couch. He had DM and pills are prescribed, but he doesn't take them or any of the prescribed meds for a few yrs. Admits to being thirsty a lot lately and urinating often. He denies fever or chest pain. Onset: Today Onset Date: 11/14/18 Onset Time: 14:00 Duration: Minutes: ( a few minutes?), Improving Location: Reports: Generalized Quality: Reports: Other (no pain reported) Severity: Moderate Improves with: Reports: Other (lying) Worsens with: Reports: Other (vertical posture) Context: Reports: Other (see HPI) Associated Symptoms: Reports: Shortness of Breath (briefly before passing out today.), Syncope, Weakness (generalized). Denies: Fever/Chills, Nausea/Vomiting Treatments USER INTERFACE ENGINEER: Reports: Other (see below) (none) - Related Data Allergies Allergy/AdvReac Type Severity Reaction Status Date / Time No Known Allergies Allergy Verified 11/14/18 14:46 Home Meds: Home Meds NK [No Known Home Meds] 11/14/18 [History] Past Medical History HEENT History: Reports: Impaired Vision Cardiovascular History: Reports: Bypass, CAD, High Cholesterol, Hypertension, Stents Respiratory History: Reports: COPD, Sleep Apnea Musculoskeletal History: Reports: Other (See Below) Other Musculoskeletal History: left rotator cuff injury Endocrine/Metabolic History: Reports: Diabetes, Type II, Obesity/BMI 30+ - Past Surgical History Head Surgeries/Procedures: Reports: None HEENT Surgical History: Reports: None, Other (See Below) Other HEENT Surgeries/Procedures: missing all teeth Cardiovascular Surgical History: Reports: Coronary Artery Bypass Respiratory Surgical History: Reports: None Endocrine Surgical History: Reports: None Musculoskeletal Surgical History: Reports: None Dermatological Surgical History: Reports: None Social & Family History - Tobacco Use Smoking Status *Q: Current Every Day Smoker Years of Tobacco use: 40 Packs/Tins Daily: 0.5 Second Hand Smoke Exposure: No - Caffeine Use Caffeine Use: Reports: Soda - Recreational Drug Use Recreational Drug Use: Yes Drug Use in Last 12 Months: Yes Recreational Drug Type: Reports: Marijuana/Hashish Recreational Drug Use Frequency: Daily ED ROS GENERAL - Review of Systems Review Of Systems: See Below Constitutional: Reports: Malaise, Weakness HEENT: Reports: Other (blurry vision) Respiratory: Reports: Shortness of Breath (briefly before passing out.) Cardiovascular: Reports: Lightheadedness Endocrine: Reports: Other (doesn't check blood sugars, increased thirst) GI/Abdominal: Reports: No Symptoms : Reports: Frequency Musculoskeletal: Reports: No Symptoms Skin: Reports: No Symptoms Neurological: Reports: No Symptoms Psychiatric: Reports: No Symptoms - Physical Exam Exam: See Below Exam Limited By: No Limitations General Appearance: Alert, WD/WN, No Apparent Distress, Obese Eye Exam: Bilateral Eye: Normal Inspection Ears: Normal External Exam, Normal Canal, Hearing Grossly Normal, Normal TMs Nose: Normal Inspection, Normal Mucosa, No Blood Throat/Mouth: Normal Lips, Normal Oropharynx, Other (mostly edentulous, speech difficult to understand due to his lack of dentitian. ) Head Exam: Atraumatic, Normocephalic Neck: Normal Inspection Respiratory/Chest: No Respiratory Distress, Lungs Clear, Normal Breath Sounds, No Accessory Muscle Use Cardiovascular: Regular Rate, Rhythm, No Edema GI/Abdominal: Normal Bowel Sounds, Soft, Non-Tender, No Distention Neuro Exam (Abbreviated): Alert, Oriented, CN II-XII Intact, Normal Cognition, No Motor/Sensory Deficits Back Exam: Normal Inspection. No: CVA Tenderness (R), CVA Tenderness (L) Extremities: Normal Inspection, Normal Range of Motion, Non-Tender, No Pedal Edema Psychiatric: Normal Affect, Normal Mood Skin Exam: Warm, Dry, Intact, Normal Color, No Rash Course - Vital Signs Text/Narrative:: Older sister called and says he does drink ETOH, although not heavy. She says he is "heavy into drugs". She has tried to get him help, but he refuses. Still refusing detox. Does feel better after IV fluids x 2 liters. Last Recorded V/S: Last Vital Signs Temp 36.3 C 11/14/18 14:47 Pulse 70 11/14/18 16:07 Resp 12 11/14/18 16:07 BP 108/68 11/14/18 16:07 Pulse Ox 96 11/14/18 16:07 - Orders/Labs/Meds Orders: Active Orders 24 hr Category Date Time Status Bladder Scan [RC] ASDIRECTED Care 11/14/18 15:11 Active Cardiac Monitoring [RC] .As Directed Care 11/14/18 15:01 Active Orthostatic Vital Signs [RC] ASDIRECTED Care 11/14/18 15:00 Inactive Lactated Ringers [Ringers, Lactated] 1,000 ml Med 11/14/18 16:08 Active IV BOLUS Medication Orders Lactated Ringer's (Ringers, Lactated) 1,000 mls @ 1,000 mls/hr IV BOLUS ONE Stop: 11/14/18 17:07 Last Admin: 11/14/18 16:20 Dose: 1,000 mls/hr Labs: Laboratory Tests 11/14/18 11/14/18 11/14/18 Range/Units 15:11 15:18 15:18 WBC 11.9 H (4.5-11.0) K/uL RBC 5.71 (4.30-5.90) M/uL Hgb 16.6 H D (12.0-15.0) g/dL Hct 50.7 (40.0-54.0) % MCV 89 (80-98) fL MCH 29 (27-31) pg MCHC 33 (32-36) % Plt Count 344 (150-400) K/uL Sodium 140 (140-148) mmol/L Potassium 4.0 (3.6-5.2) mmol/L Chloride 100 (100-108) mmol/L Carbon Dioxide 27 (21-32) mmol/L Anion Gap 12.6 (5.0-14.0) mmol/L BUN 14 D (7-18) mg/dL Creatinine 1.4 H D (0.8-1.3) mg/dL Est Cr Clr Drug Dosing 55.41 mL/min Estimated GFR (MDRD) 52 L (>60) Glucose 134 H (74-106) mg/dL Calcium 8.8 (8.5-10.1) mg/dL Magnesium (1.8-2.4) mg/dL Troponin I < 0.017 (0.000-0.056) ng/mL Urine Color Yellow Urine Appearance Slightly cloudy Urine pH 6.0 (4.5-8.0) Ur Specific [place] 1.020 (1.008-1.030) Urine Protein 30 H (NEGATIVE) mg/dL Urine Glucose (UA) Normal (NEGATIVE) mg/dL Urine Ketones Negative (NEGATIVE) mg/dL Urine Occult Blood Negative (NEGATIVE) Urine Nitrite Negative (NEGAITVE) Urine Bilirubin Negative (NEGATIVE) Urine Urobilinogen 1 (NORMAL) mg/dL Ur Leukocyte Esterase Negative (NEGATIVE) Urine RBC Not seen (0-5) Urine WBC Not seen (0-5) Ur Epithelial Cells Not seen Amorphous Sediment Not seen Urine Bacteria Not seen Urine Mucus Not seen Urine Opiates Screen (NEGATIVE) Ur Oxycodone Screen (NEGATIVE) Urine Methadone Screen (NEGATIVE) Ur Propoxyphene Screen (NEGATIVE) Ur Barbiturates Screen (NEGATIVE) Ur Tricyclics Screen (NEGATIVE) Ur Phencyclidine Scrn (NEGATIVE) Ur Amphetamine Screen (NEGATIVE) U Methamphetamines Scrn (NEGATIVE) Urine MDMA Screen (NEGATIVE) U Benzodiazepines Scrn (NEGATIVE) U Cocaine Metab Screen (NEGATIVE) U Marijuana (THC) Screen (NEGATIVE) 11/14/18 11/14/18 Range/Units 15:30 16:09 WBC (4.5-11.0) K/uL RBC (4.30-5.90) M/uL Hgb (12.0-15.0) g/dL Hct (40.0-54.0) % MCV (80-98) fL MCH (27-31) pg MCHC (32-36) % Plt Count (150-400) K/uL Sodium (140-148) mmol/L Potassium (3.6-5.2) mmol/L Chloride (100-108) mmol/L Carbon Dioxide (21-32) mmol/L Anion Gap (5.0-14.0) mmol/L BUN (7-18) mg/dL Creatinine (0.8-1.3) mg/dL Est Cr Clr Drug Dosing mL/min Estimated GFR (MDRD) (>60) Glucose (74-106) mg/dL Calcium (8.5-10.1) mg/dL Magnesium 1.9 (1.8-2.4) mg/dL Troponin I (0.000-0.056) ng/mL Urine Color Urine Appearance Urine pH (4.5-8.0) Ur Specific [place] (1.008-1.030) Urine Protein (NEGATIVE) mg/dL Urine Glucose (UA) (NEGATIVE) mg/dL Urine Ketones (NEGATIVE) mg/dL Urine Occult Blood (NEGATIVE) Urine Nitrite (NEGAITVE) Urine Bilirubin (NEGATIVE) Urine Urobilinogen (NORMAL) mg/dL Ur Leukocyte Esterase (NEGATIVE) Urine RBC (0-5) Urine WBC (0-5) Ur Epithelial Cells Amorphous Sediment Urine Bacteria Urine Mucus Urine Opiates Screen Negative (NEGATIVE) Ur Oxycodone Screen Negative (NEGATIVE) Urine Methadone Screen Negative (NEGATIVE) Ur Propoxyphene Screen Negative (NEGATIVE) Ur Barbiturates Screen Negative (NEGATIVE) Ur Tricyclics Screen Negative (NEGATIVE) Ur Phencyclidine Scrn Negative (NEGATIVE) Ur Amphetamine Screen Presumptive positive H (NEGATIVE) U Methamphetamines Scrn Presumptive positive H (NEGATIVE) Urine MDMA Screen Negative (NEGATIVE) U Benzodiazepines Scrn Negative (NEGATIVE) U Cocaine Metab Screen Negative (NEGATIVE) U Marijuana (THC) Screen Presumptive positive H (NEGATIVE) Meds: Medications Generic Name Dose Route Start Last Admin Trade Name Freq PRN Reason Stop Dose Admin Lactated Ringer's 1,000 mls @ 1,000 mls/hr 11/14/18 16:08 11/14/18 16:20 Ringers, Lactated IV 11/14/18 17:07 1,000 mls/hr BOLUS ONE Administration Discontinued Medications Generic Name Dose Route Start Last Admin Trade Name Freq PRN Reason Stop Dose Admin Lactated Ringer's 1,000 mls @ 1,000 mls/hr 11/14/18 15:07 11/14/18 15:16 Ringers, Lactated IV 11/14/18 16:06 1,000 mls/hr BOLUS ONE Administration Departure - Departure Time of Disposition: 17:05 Disposition: Home, Self-Care 01 Condition: Fair Clinical Impression: Methamphetamine abuse - Discharge Information *PRESCRIPTION DRUG MONITORING PROGRAM REVIEWED*: No *COPY OF PRESCRIPTION DRUG MONITORING REPORT IN PATIENT [place]INA: No Instructions: Hypotension, [id number], Substance Use Disorder, Syncope, Easy- to-Read Referrals: PCP,None [Primary Care Provider] - Forms: ED Department Discharge Additional Instructions: Eat healthy food, drink ample water. Recheck with your doctor later this week. Avoid ALL street drugs. - My Orders Last 24 Hours: My Active Orders 11/14/18 15:00 Orthostatic Vital Signs [RC] ASDIRECTED 11/14/18 15:01 Cardiac Monitoring [RC] .As Directed 11/14/18 15:11 Bladder Scan [RC] ASDIRECTED 11/14/18 16:08 Lactated Ringers [Ringers, Lactated] 1,000 ml IV BOLUS - Assessment/Plan Last 24 Hours: My Active Orders 11/14/18 15:00 Orthostatic Vital Signs [RC] ASDIRECTED 11/14/18 15:01 Cardiac Monitoring [RC] .As Directed 11/14/18 15:11 Bladder Scan [RC] ASDIRECTED 11/14/18 16:08 Lactated Ringers [Ringers, Lactated] 1,000 ml IV BOLUS
== END 2018-11-14 18:11 | disposition home or self-care (01) ==
LOC: JP.ED 14:39
DX: F15.10 Other stimulant abuse, uncomplicated (principal); I25.10 Atherosclerotic heart disease of native coronary artery without angina pectoris; E78.00 Pure hypercholesterolemia, unspecified; I10 Essential (primary) hypertension; F17.210 Nicotine dependence, cigarettes, uncomplicated; E11.9 Type 2 diabetes mellitus without complications; Z95.1 Presence of aortocoronary bypass graft
CPT/HCPCS: 36415; 51798; 80048; 80305; 81001; 83735; 84484; 85027; 96360; 96361; 99284; J7120

== ENCOUNTER 2020-06-13 19:21 | Emergency (ER) | payer MEDICARE ==
--- NOTE | 2020-06-13 19:37 | EDM.PDOC ---
ED HPI GENERAL MEDICAL PROBLEM - General Chief Complaint: Chest Pain Stated Complaint: MEDICAL VIA [facility] Time Seen by Provider: 06/13/20 19:21 Source of Information: Reports: Patient, EMS History Limitations: Reports: No Limitations - History of Present Illness INITIAL COMMENTS - FREE TEXT/NARRATIVE: 65-year-old male with known coronary artery disease, diabetes, smoker, who called EMS after having chest pain and nausea for the past 4 hours. It started around 2 PM while he was lying down. Radiated to his jaw and into his arm causing nausea, he had one emesis. Moderate shortness of breath. He is diabetic and hypertensive, is on medications but has not been taking them for a long time, has not seen a doctor in a year. After being picked up by EMS, he w as given for low-dose aspirin and 3 nitroglycerin which resolved the pain so a nitroglycerin drip was started. He remains pain-free. He appears very anxious. He has a history of methamphetamine abuse he says he has been staying away for the past year and exercising frequently. He does not get chest pain with exercise. He has not had any recent cold symptoms, fevers, cough, runny nose or symptoms of COVID. His pain was rather abrupt in onset around 4 to 5 hours ago. EMS suggested transfer to [place] where there is cardiology but the patient wanted to be evaluated here, I am unsure why. Onset: Sudden Duration: Hour(s): (Roughly 4-1/2 to 5 hours of symptoms) Location: Reports: Chest Associated Symptoms: Reports: Chest Pain, Malaise, Nausea/Vomiting, Shortness of Breath. Denies: Fever/Chills, Headaches - Related Data Allergies Allergy/AdvReac Type Severity Reaction Status Date / Time No Known Allergies Allergy Verified 06/13/20 19:25 Home Meds: Home Meds NK [No Known Home Meds] 11/14/18 [History] Past Medical History HEENT History: Reports: Impaired Vision Cardiovascular History: Reports: Bypass, CAD, High Cholesterol, Hypertension, Stents Respiratory History: Reports: COPD, Sleep Apnea Musculoskeletal History: Reports: Other (See Below) Other Musculoskeletal History: left rotator cuff injury Endocrine/Metabolic History: Reports: Diabetes, Type II, Obesity/BMI 30+ - Past Surgical History Head Surgeries/Procedures: Reports: None HEENT Surgical History: Reports: None, Other (See Below) Other HEENT Surgeries/Procedures: missing all teeth Cardiovascular Surgical History: Reports: Coronary Artery Bypass Respiratory Surgical History: Reports: None Endocrine Surgical History: Reports: None Musculoskeletal Surgical History: Reports: None Dermatological Surgical History: Reports: None Social & Family History - Caffeine Use Caffeine Use: Reports: Soda - Recreational Drug Use Recreational Drug Use: No ED ROS GENERAL - Review of Systems Review Of Systems: See Below Constitutional: Reports: Malaise. Denies: Fever, Chills HEENT: Reports: Other (Left jaw pain which has resolved) Respiratory: Reports: Shortness of Breath. Denies: Cough Cardiovascular: Reports: Chest Pain. Denies: Palpitations GI/Abdominal: Reports: Nausea, Vomiting (One episode of emesis, no abdominal pain). Denies: Abdominal Pain Skin: Reports: Diaphoresis Neurological: Denies: Confusion, Headache, Weakness Psychiatric: Reports: Anxiety ED EXAM, GENERAL - Physical Exam Exam: See Below Exam Limited By: No Limitations General Appearance: Alert, Anxious, Other (Now fairly comfortable) Eye Exam: Bilateral Eye: Other (Conjunctival injection bilaterally, no jaundice) Head: Atraumatic Respiratory/Chest: No Respiratory Distress, Lungs Clear Cardiovascular: Regular Rate, Rhythm. No: Extra Beats GI/Abdominal: Soft, Non-Tender, Other (Obesity is present) Extremities: No: Pedal Edema Psychiatric: Anxious Skin Exam: Warm, Dry EKG INTERPRETATION EKG Date: 06/13/20 Rhythm: NSR EKG Interpretation Comments: Patient is in a normal sinus rhythm, EKG was repeated here and compared to EMS, they were basically identical. No obvious ST elevation was present, there was subtle elevation in the anterior leads but not significant. Course - Vital Signs Last Recorded V/S: Last Vital Signs Temp 99.0 F 06/13/20 19:27 Pulse 84 06/13/20 19:48 Resp 21 H 06/13/20 19:48 BP 162/98 H 06/13/20 19:48 Pulse Ox 96 06/13/20 19:48 - Orders/Labs/Meds Orders: Active Orders 24 hr Category Date Time Status EKG 12 Lead [EK] Routine Ther 06/13/20 19:23 Ordered Labs: Laboratory Tests 06/13/20 06/13/20 06/13/20 Range/Units 19:29 19:29 19:29 WBC 10.8 (4.5-11.0) K/uL RBC 5.54 (4.30-5.90) M/uL Hgb 15.9 H (12.0-15.0) g/dL Hct 48.9 (40.0-54.0) % MCV 88 (80-98) fL MCH 29 (27-31) pg MCHC 33 (32-36) % Plt Count 303 (150-400) K/uL Neut % (Auto) 70 H (36-66) % Lymph % (Auto) 19 L (24-44) % [place] % (Auto) 10 H (2-6) % Eos % (Auto) 2 (2-4) % Baso % (Auto) 1 (0-1) % Sodium 140 (140-148) mmol/L Potassium 3.8 (3.6-5.2) mmol/L Chloride 104 (100-108) mmol/L Carbon Dioxide 30 (21-32) mmol/L Anion Gap 6.3 (5.0-14.0) mmol/L BUN 25 H D (7-18) mg/dL Creatinine 1.5 H (0.8-1.3) mg/dL Est Cr Clr Drug Dosing TNP Estimated GFR (MDRD) 47 L (>60) Glucose 110 H (74-106) mg/dL Calcium 8.4 L (8.5-10.1) mg/dL Total Bilirubin 0.4 (0.2-1.0) mg/dL AST 17 (15-37) U/L ALT 24 (12-78) U/L Alkaline Phosphatase 98 (46-116) U/L Troponin I < 0.017 (0.000-0.056) ng/mL Total Protein 6.5 (6.4-8.2) g/dL Albumin 3.1 L (3.4-5.0) g/dL Globulin 3.4 (2.3-3.5) g/dL Albumin/Globulin Ratio 0.9 L (1.2-2.2) Urine Opiates Screen (NEGATIVE) Ur Oxycodone Screen (NEGATIVE) Urine Methadone Screen (NEGATIVE) Ur Propoxyphene Screen (NEGATIVE) Ur Barbiturates Screen (NEGATIVE) Ur Tricyclics Screen (NEGATIVE) Ur Phencyclidine Scrn (NEGATIVE) Ur Amphetamine Screen (NEGATIVE) U Methamphetamines Scrn (NEGATIVE) Urine MDMA Screen (NEGATIVE) U Benzodiazepines Scrn (NEGATIVE) U Cocaine Metab Screen (NEGATIVE) U Marijuana (THC) Screen (NEGATIVE) Ethyl Alcohol < 3 mg/dL 06/13/20 Range/Units 19:38 WBC (4.5-11.0) K/uL RBC (4.30-5.90) M/uL Hgb (12.0-15.0) g/dL Hct (40.0-54.0) % MCV (80-98) fL MCH (27-31) pg MCHC (32-36) % Plt Count (150-400) K/uL Neut % (Auto) (36-66) % Lymph % (Auto) (24-44) % [place] % (Auto) (2-6) % Eos % (Auto) (2-4) % Baso % (Auto) (0-1) % Sodium (140-148) mmol/L Potassium (3.6-5.2) mmol/L Chloride (100-108) mmol/L Carbon Dioxide (21-32) mmol/L Anion Gap (5.0-14.0) mmol/L BUN (7-18) mg/dL Creatinine (0.8-1.3) mg/dL Est Cr Clr Drug Dosing Estimated GFR (MDRD) (>60) Glucose (74-106) mg/dL Calcium (8.5-10.1) mg/dL Total Bilirubin (0.2-1.0) mg/dL AST (15-37) U/L ALT (12-78) U/L Alkaline Phosphatase (46-116) U/L Troponin I (0.000-0.056) ng/mL Total Protein (6.4-8.2) g/dL Albumin (3.4-5.0) g/dL Globulin (2.3-3.5) g/dL Albumin/Globulin Ratio (1.2-2.2) Urine Opiates Screen Negative (NEGATIVE) Ur Oxycodone Screen Negative (NEGATIVE) Urine Methadone Screen Negative (NEGATIVE) Ur Propoxyphene Screen Negative (NEGATIVE) Ur Barbiturates Screen Negative (NEGATIVE) Ur Tricyclics Screen Negative (NEGATIVE) Ur Phencyclidine Scrn Negative (NEGATIVE) Ur Amphetamine Screen Negative (NEGATIVE) U Methamphetamines Scrn Presumptive positive H (NEGATIVE) Urine MDMA Screen Negative (NEGATIVE) U Benzodiazepines Scrn Negative (NEGATIVE) U Cocaine Metab Screen Negative (NEGATIVE) U Marijuana (THC) Screen Presumptive positive H (NEGATIVE) Ethyl Alcohol mg/dL Meds: Medications Discontinued Medications Generic Name Dose Route Start Last Admin Trade Name [place] PRN Reason Stop Dose Admin Labetalol HCl 20 mg 06/13/20 19:45 06/13/20 19:50 Normodyne IVPUSH 06/13/20 19:46 20 mg NOW ONE Administration Protocol - Re-Assessments/Exams Free Text/Narrative Re-Assessment/Exam: 06/13/20 20:01 Initial EKGs were consistent on the same, his pain did not recur. CBC, CMP, troponin and 1 view chest x-ray were obtained. Chest x-ray showed no acute findings. CBC returned relatively normal, CMP glucose was 110, there was mild renal insufficiency with a GFR of 47 and a creatinine of 1.5 but otherwise generally normal. Troponin was 0. UA was positive for methamphetamine and marijuana. Since symptoms started 4 or 5 hours ago and troponin is 0, [place] can be ruled out. This pain was likely methamphetamine related and I explained this to the patient. He did require 1 dose of labetalol when he stayed persistently hypertensive after arrival, but just prior to giving the labetalol his systolic did drop to 168 and diastolic of 101. He was not tachycardic. 06/13/20 20:13 Patient remained stable and will be discharged, encouraged to avoid methamphetamine abuse in the future. Departure - Departure Time of Disposition: 20:26 Disposition: Home, Self-Care 01 Clinical Impression: Chest pain, non-cardiac, Methamphetamine abuse, Medical non-compliance - Discharge Information Instructions: Nonspecific Chest Pain, Adult Referrals: PCP,None [Primary Care Provider] - Forms: ED Department Discharge Care Plan Goals: Avoid any further methamphetamine exposure, and I would strongly encourage you to recheck in the next week or 2 with your primary provider to establish care and resume any medications that are needed. Sepsis Event Note (ED) - Evaluation Sepsis Screening Result: No Definite Risk - Focused Exam Vital Signs: Vital Signs Temp Pulse Resp BP Pulse Ox 06/13/20 19:48 84 21 H 162/98 H 96 06/13/20 19:27 99.0 F 93 22 H 179/111 H 96 06/13/20 19:25 99.0 F 93 22 H 179/111 H 96 - My Orders Last 24 Hours: My Active Orders 06/13/20 19:23 EKG 12 Lead [EK] Routine - Assessment/Plan Last 24 Hours: My Active Orders 06/13/20 19:23 EKG 12 Lead [EK] Routine
[2020-06-13] MEDS ORDERED: Labetalol 20 MG/4 ML Syringe IVPUSH ONE (19:45)
--- NOTE | 2020-06-13 19:45 | CRLCR ---
Indication: Chest pain Technique: A single-view chest radiograph was obtained portably Comparison: September 20, 2017 Findings: Heart size top normal. Median sternotomy. Lungs hyperinflated probably related to COPD. However, the lungs are clear without acute focal finding. No visible pleural effusion or pneumothorax. Impression: Heart size top normal. Median sternotomy. Hyperinflated but otherwise unremarkable appearing lungs without acute focal findings. Dictated by Pino Schaffer MD @ Jun 13 2020 7:43PM Signed by Dr. Pino Schaffer @ Jun 13 2020 7:44PM
== END 2020-06-13 20:26 | disposition home or self-care (01) ==
LOC: JP.ED 19:21
DX: R07.89 Other chest pain (principal); F15.10 Other stimulant abuse, uncomplicated; I25.10 Atherosclerotic heart disease of native coronary artery without angina pectoris; I10 Essential (primary) hypertension; J44.9 Chronic obstructive pulmonary disease, unspecified; E11.9 Type 2 diabetes mellitus without complications; E66.9 Obesity, unspecified; Z68.37 Body mass index [BMI] 37.0-37.9, adult; Z91.14 Patient's other noncompliance with medication regimen; Z95.1 Presence of aortocoronary bypass graft; F15.20 Other stimulant dependence, uncomplicated
CPT/HCPCS: 36415; 71045; 80053; 80305; 80307; 84484; 85025; 93005; 93010; 96374; 99283; 99285; J3490

== ENCOUNTER 2021-05-06 18:51 | Emergency (ER) | payer MEDICARE ==
--- NOTE | 2021-05-06 19:25 | EDM.PDOC ---
ED HPI GENERAL MEDICAL PROBLEM - General Chief Complaint: General Stated Complaint: MEDICAL VIA [facility]TH Time Seen by Provider: 05/06/21 19:20 Source of Information: Reports: Patient, EMS, Police, RN History Limitations: Reports: No Limitations - History of Present Illness INITIAL COMMENTS - FREE TEXT/NARRATIVE: Patient was released from [facility] today. He was walking home after his release. He he realized he was walking in the wrong direction. He says he was out walking for several miles and for several hours. He is concerned about his blood sugar and would like a blood sugar check. Onset: Today, Sudden Location: Reports: Generalized Severity: Mild Improves with: Reports: None Worsens with: Reports: None - Related Data Allergies Allergy/AdvReac Type Severity Reaction Status Date / Time No Known Allergies Allergy Verified 05/06/21 18:55 Home Meds: Home Meds Clopidogrel [Plavix] 75 mg PO DAILY 05/06/21 [History] Metoprolol Succinate 25 mg PO DAILY 05/06/21 [History] amLODIPine [Norvasc] 10 mg PO DAILY 05/06/21 [History] atorvaSTATin [Lipitor] 40 mg PO BEDTIME 05/06/21 [History] lisinopriL [Lisinopril] 10 mg PO DAILY 05/06/21 [History] Past Medical History HEENT History: Reports: Impaired Vision Cardiovascular History: Reports: Bypass, CAD, High Cholesterol, Hypertension, Stents Respiratory History: Reports: COPD, Sleep Apnea Musculoskeletal History: Reports: Other (See Below) Other Musculoskeletal History: left rotator cuff injury Endocrine/Metabolic History: Reports: Diabetes, Type II, Obesity/BMI 30+ - Past Surgical History Head Surgeries/Procedures: Reports: None HEENT Surgical History: Reports: None, Other (See Below) Other HEENT Surgeries/Procedures: missing all teeth Cardiovascular Surgical History: Reports: Coronary Artery Bypass Respiratory Surgical History: Reports: None Endocrine Surgical History: Reports: None Musculoskeletal Surgical History: Reports: None Dermatological Surgical History: Reports: None Social & Family History - Tobacco Use Tobacco Use Status *Q: Current Every Day Tobacco User Years of Tobacco use: 45 Packs/Tins Daily: 0.3 - Caffeine Use Caffeine Use: Reports: Coffee - Recreational Drug Use Recreational Drug Use: Yes Drug Use in Last 12 Months: Yes Recreational Drug Type: Reports: Marijuana/Hashish Recreational Drug Use Frequency: Daily ED ROS GENERAL - Review of Systems Review Of Systems: See Below Constitutional: Reports: Fatigue Respiratory: Reports: No Symptoms Cardiovascular: Reports: No Symptoms Endocrine: Reports: Other (Concern for high blood glucose) Musculoskeletal: Reports: No Symptoms Skin: Reports: No Symptoms Neurological: Reports: No Symptoms Psychiatric: Reports: No Symptoms ED EXAM, GENERAL - Physical Exam Exam: See Below Exam Limited By: No Limitations General Appearance: Alert, Mild Distress Respiratory/Chest: No Respiratory Distress, Lungs Clear Cardiovascular: Normal Peripheral Pulses, Regular Rate, Rhythm GI/Abdominal: Normal Bowel Sounds, Soft Neurological: Alert, Oriented, CN II-XII Intact Skin Exam: Warm, Dry, Intact Course - Vital Signs Last Recorded V/S: Last Vital Signs Temp 36.5 C 05/06/21 19:02 Pulse 87 05/06/21 19:02 Resp 16 05/06/21 19:02 BP 111/66 05/06/21 19:02 Pulse Ox 95 05/06/21 19:02 - Orders/Labs/Meds Labs: Laboratory Tests 05/06/21 Range/Units 19:28 POC Glucose 112 H (74-106) mg/dL We will check blood sugar for patient. If this is within normal limits patient would like to be discharged. Patient will wait for his ride home who has been c ontacted by nursing staff. Patient's blood glucose 112. Within normal limits. Patient is safe to discharge home. He is in agreement with this plan. - Re-Assessments/Exams Free Text/Narrative Re-Assessment/Exam: 05/06/21 19:47 Blood sugar within normal limits. Patient safe to discharge to home at his request.. Departure - Departure Time of Disposition: 19:50 Disposition: Home, Self-Care 01 Condition: Fair Clinical Impression: Hypoglycemia - Discharge Information *PRESCRIPTION DRUG MONITORING PROGRAM REVIEWED*: No *COPY OF PRESCRIPTION DRUG MONITORING REPORT IN PATIENT [place]: No Instructions: Hypoglycemia Referrals: PCP,None [Primary Care Provider] - Forms: ED Department Discharge Additional Instructions: Patient was given water on admit. He feels much better. Blood sugar checked and found to be within normal limits. Patient was discharged home of his own accord. If he needs further help he can follow-up with his primary care provider or return to the ER i. Sepsis Event Note (ED) - Evaluation Sepsis Screening Result: No Definite Risk - Focused Exam Vital Signs: Vital Signs Temp Pulse Resp BP Pulse Ox 05/06/21 19:02 36.5 C 87 16 111/66 95 - Assessment/Plan Assessment:: Stable diabetes mellitus Plan: Patient to discharge to home. May return to ER or clinic if symptoms worsen or if he has further concerns. Follow-up with primary care provider in the next 3 to 5 days for further evaluation.
== END 2021-05-06 19:54 | disposition home or self-care (01) ==
LOC: JP.ED 18:51
DX: E16.2 Hypoglycemia, unspecified (principal)
CPT/HCPCS: 82947

== ENCOUNTER 2021-05-06 23:05 | Emergency (ER) | payer MEDICARE ==
--- NOTE | 2021-05-06 23:44 | EDM.PDOC ---
ED HPI GENERAL MEDICAL PROBLEM - General Chief Complaint: General Stated Complaint: MEDICAL VIA NORTH Time Seen by Provider: 05/06/21 23:25 Source of Information: Reports: Patient, EMS History Limitations: Reports: No Limitations - History of Present Illness INITIAL COMMENTS - FREE TEXT/NARRATIVE: 66-year-old male who was in here earlier tonight brought in by police wandering the streets after being discharged from [facility]. A ride was arranged for him to go back to [facility], however he left the hospital and went the wrong direction and apparently the ride could not find him. He then walked up to the gas station and said they needed to call the ambulance because his "jaw hurt". At first he said he fell, then he said it just hurt when he was walking. I do not think he had any place else to go. He arrives stable, no treatment given by EMS, threat monitoring analyst shows normal sinus rhythm. Onset: Unknown/Unsure Associated Symptoms: Denies: Chest Pain, Cough, Fever/Chills, Nausea/Vomiting, Shortness of Breath, Weakness Treatments BUSINESS CONTINUITY MANAGER: Reports: See EMS Report Jaw Pain Score (Numeric/FACES): 3 - Related Data Allergies Allergy/AdvReac Type Severity Reaction Status Date / Time No Known Allergies Allergy Verified 05/06/21 23:06 Home Meds: Home Meds Clopidogrel [Plavix] 75 mg PO DAILY 05/06/21 [History] Metoprolol Succinate 25 mg PO DAILY 05/06/21 [History] amLODIPine [Norvasc] 10 mg PO DAILY 05/06/21 [History] atorvaSTATin [Lipitor] 40 mg PO BEDTIME 05/06/21 [History] lisinopriL [Lisinopril] 10 mg PO DAILY 05/06/21 [History] Past Medical History HEENT History: Reports: Impaired Vision Cardiovascular History: Reports: Bypass, CAD, High Cholesterol, Hypertension, Stents Respiratory History: Reports: COPD, Sleep Apnea Musculoskeletal History: Reports: Other (See Below) Other Musculoskeletal History: left rotator cuff injury Endocrine/Metabolic History: Reports: Diabetes, Type II, Obesity/BMI 30+ - Infectious Disease History Infectious Disease History: Reports: Chicken Pox - Past Surgical History Head Surgeries/Procedures: Reports: None HEENT Surgical History: Reports: None, Other (See Below) Other HEENT Surgeries/Procedures: missing all teeth Cardiovascular Surgical History: Reports: Coronary Artery Bypass Respiratory Surgical History: Reports: None Endocrine Surgical History: Reports: None Musculoskeletal Surgical History: Reports: None Dermatological Surgical History: Reports: None Social & Family History - Tobacco Use Tobacco Use Status *Q: Current Every Day Tobacco User Years of Tobacco use: 45 Packs/Tins Daily: 0.3 - Caffeine Use Caffeine Use: Reports: Coffee - Recreational Drug Use Recreational Drug Use: Yes Drug Use in Last 12 Months: Yes Recreational Drug Type: Reports: Marijuana/Hashish Recreational Drug Use Frequency: Daily ED ROS GENERAL - Review of Systems Review Of Systems: See Below Constitutional: Denies: Fever, Chills HEENT: Reports: Other (Right jaw pain). Denies: Vision Change Respiratory: Reports: Shortness of Breath Cardiovascular: Denies: Chest Pain GI/Abdominal: Denies: Nausea, Vomiting Musculoskeletal: Reports: Other (Right arm pain) Neurological: Denies: Headache ED EXAM, GENERAL - Physical Exam Exam: See Below Exam Limited By: No Limitations General Appearance: Alert, No Apparent Distress, Other (Unkempt, very flat affect) Eye Exam: Bilateral Eye: EOMI, Normal Inspection (No jaundice) Respiratory/Chest: No Respiratory Distress, Lungs Clear Cardiovascular: Regular Rate, Rhythm GI/Abdominal: Soft, Non-Tender Neurological: Alert, Confused (Not completely oriented, thinks it is Thursday and told EMS it was 2021) Skin Exam: Warm, Dry #1 Interpretation EKG Date: 05/06/21 Time: 23:40 Rhythm: NSR (EKG is completely normal) Course - Vital Signs Last Recorded V/S: Last Vital Signs Temp 97.9 F 05/06/21 23:34 Pulse 84 05/06/21 23:34 Resp 16 05/06/21 23:34 BP 104/68 05/06/21 23:34 Pulse Ox 95 05/06/21 23:34 - Re-Assessments/Exams Free Text/Narrative Re-Assessment/Exam: 05/06/21 23:42 Patient denies any symptoms currently. He was reassured that his EKG is normal and can be discharged. Departure - Departure Time of Disposition: 23:55 Disposition: Home, Self-Care 01 Clinical Impression: Anxiety about health, Right arm pain - Discharge Information Instructions: Managing Anxiety, Adult Referrals: PCP,None [Primary Care Provider] - Forms: ED Department Discharge Care Plan Goals: Continue any prescription medications as prescribed, increase activity as tolerated and recheck with your regular doctor if symptoms recur on a regular basis. Return to the emergency room if they are persistent or worsening. Sepsis Event Note (ED) - Focused Exam Vital Signs: Vital Signs Temp Pulse Resp BP Pulse Ox 05/06/21 23:34 97.9 F 84 16 104/68 95
== END 2021-05-06 23:56 | disposition home or self-care (01) ==
LOC: JP.ED 23:05
DX: M79.601 Pain in right arm (principal); F41.9 Anxiety disorder, unspecified; I25.10 Atherosclerotic heart disease of native coronary artery without angina pectoris; E78.00 Pure hypercholesterolemia, unspecified; I10 Essential (primary) hypertension; J44.9 Chronic obstructive pulmonary disease, unspecified; E11.9 Type 2 diabetes mellitus without complications; E66.9 Obesity, unspecified; Z68.30 Body mass index [BMI] 30.0-30.9, adult; Z95.1 Presence of aortocoronary bypass graft; Z72.0 Tobacco use; Z79.02 Long term (current) use of antithrombotics/antiplatelets; Z79.899 Other long term (current) drug therapy; E11.649 Type 2 diabetes mellitus with hypoglycemia without coma
CPT/HCPCS: 82947; 99284-25

== ENCOUNTER 2024-03-26 06:14 | Emergency (ER) | payer MEDICARE, MEDICAID ==
[2024-03-26] MEDS ORDERED: Sodium Chloride 0.9% 10 ML Syringe FLUSH PRN (06:32)
[2024-03-26 06:36] LABS: BASOPHILS ABSOLUTE AUTO 0.04 K/uL (0.00-0.10); BASOPHILS PERCENT AUTO 0.3 % (0.1-1.3); EOSINOPHILS ABSOLUTE AUTO 0.04 K/uL (0.00-0.40); EOSINOPHILS PERCENT AUTO 0.3 % (0.0-5.4); HEMATOCRIT 41.8 % (38.4-49.7); HEMOGLOBIN 14.1 g/dL (12.9-16.9); IMMATURE GRAN ABSOLUTE AUTO 0.06 K/uL (0.00-0.23); IMMATURE GRAN PERCENT AUTO 0.4 % (0.0-0.7); LYMPHOCYTES ABSOLUTE AUTO 0.59 K/uL (0.8-3.3); MEAN CORPUSCULAR HEMOGLOBIN 29.3 pg (31.6-35.5); MEAN CORPUSCULAR HGB CONC 33.7 g/dL (31.6-35.5); MEAN CORPUSCULAR VOLUME 86.7 fL (81.4-99.0); MONOCYTES ABSOLUTE AUTO 0.99 K/uL (0.20-0.90); MONOCYTES PERCENT AUTO 6.7 % (3.3-12.6); NEUTROPHILS ABSOLUTE AUTO 13.12 K/uL (1.0-7.6); NEUTROPHILS PERCENT AUTO 88.3 % (40.0-78.1); PLATELET COUNT,PLT 260 K/uL (130-375); RED BLOOD CELL COUNT 4.82 M/uL (4.14-5.76); WHITE BLOOD CELL COUNT,WBC 14.8 K/uL (3.2-11.0)
[2024-03-26] MEDS: Ondansetron 4 MG/2 ML SDV IVPUSH ONE (06:52)
[2024-03-26] MEDS: Sodium Chloride 0.9% 1,000 ML IV ONE (06:52)
[2024-03-26 07:04] LABS: LACTIC ACID 1.6 mmol/L (0.4-2.0)
[2024-03-26] MEDS: Acetaminophen 1,000 MG in Premix Bag 1 BAG IV ONE (07:04)
[2024-03-26 07:07] LABS: A/G RATIO 0.9 (1.2-2.2); ALANINE AMINOTRANSFERASE,ALT 24 U/L (12-78); ALBUMIN 3.5 g/dL (3.4-5.0); ALKALINE PHOSPHATASE 99 U/L (46-116); ANION GAP 11.7 mmol/L (5.0-14.0); ASPARTATE AMNIOTRANSFERASE,AST 15 U/L (15-37); BILIRUBIN TOTAL 0.7 mg/dL (0.2-1.0); BLOOD UREA NITROGEN,BUN 34 mg/dL (7-18); C-REACTIVE PROTEIN 5.18 mg/dL (<0.50); CALCIUM 8.9 mg/dL (8.5-10.1); CARBON DIOXIDE,CO2 26 mmol/L (21-32); CHLORIDE,CL 102 mmol/L (100-108); CREATININE 1.4 mg/dL (0.8-1.3); ESTIMATED GFR 55 mL/min (>60); GLUCOSE RANDOM 137 mg/dL (74-106); POTASSIUM,K 4.4 mmol/L (3.6-5.2); PROTEIN TOTAL,TP 7.5 g/dL (6.4-8.2); SODIUM,NA 140 mmol/L (140-148); TROPONIN I HIGH SENSITIVITY 12.5 pg/mL (<=60.3)
[2024-03-26] MEDS: cefTRIAXone 1 GM in Sodium Chloride 0.9% 50 ML IV ONE (08:02)
[2024-03-26] MEDS: Sodium Chloride 0.9% 1,000 ML IV SCH (08:08)
[2024-03-26] MEDS: Azithromycin 500 MG in Sodium Chloride 0.9% 250 ML IV SCH (08:27)
[2024-03-26 11:43] LABS: APPEARANCE,URINE SLIGHTLY CLOUDY (CLEAR); BILIRUBIN,URINE NEGATIVE (NEGATIVE); COLOR,URINE YELLOW (YELLOW); GLUCOSE,URINE NEGATIVE (NEGATIVE); KETONES,URINE NEGATIVE (NEGATIVE); LEUKOCYTE ESTERASE,URINE NEGATIVE (NEGATIVE); NITRITE,URINE NEGATIVE (NEGATIVE); OCCULT BLOOD,URINE NEGATIVE (NEGATIVE); PH,URINE 5.5 (5.0-8.0); PROTEIN,URINE TRACE mg/dL (NEGATIVE); UROBILINOGEN,URINE 0.2 EU/dL (0.2-1.0)
[2024-03-26 11:52] LABS: AMORPHOUS SEDIMENT,URINE RARE; BACTERIA,URINE NOT SEEN; EPITHELIAL CELLS,URINE NOT SEEN; MUCUS,URINE NOT SEEN; RBC,URINE NOT SEEN (0-5); WBC,URINE NOT SEEN (0-5)
[2024-03-26 11:53] LABS: AMPHETAMINES SCREEN, URINE NEGATIVE (NEGATIVE); BARBITURATE SCREEN,URINE NEGATIVE (NEGATIVE); BENZODIAZEPINES SCREEN,URINE NEGATIVE (NEGATIVE); METHADONE SCREEN, URINE NEGATIVE (NEGATIVE); METHAMPHETAMINES SCREEN, URINE NEGATIVE (NEGATIVE); OXYCODONE SCREEN,URINE NEGATIVE (NEGATIVE); PROPOXYPHENE SCREEN,URINE NEGATIVE (NEGATIVE); THC SCREEN,URINE 50 NG/ML NEGATIVE (NEGATIVE)
== END 2024-03-26 12:23 ==
LOC: JP.ED 06:14
DX: J18.9 Pneumonia, unspecified organism (principal); I10 Essential (primary) hypertension; I25.10 Atherosclerotic heart disease of native coronary artery without angina pectoris; E78.00 Pure hypercholesterolemia, unspecified; J44.9 Chronic obstructive pulmonary disease, unspecified; E11.9 Type 2 diabetes mellitus without complications; E66.9 Obesity, unspecified; Z95.5 Presence of coronary angioplasty implant and graft; Z95.1 Presence of aortocoronary bypass graft; Z79.899 Other long term (current) drug therapy; Z68.41 Body mass index [BMI] 40.0-44.9, adult
CPT/HCPCS: 36415; 71045; 80053; 80305; 81001; 83605; 84145; 84484; 85025; 86140; 87040; 93005; 96361; 96365; 96366; 96367; 96375; 99285; J0131; J0456; J0696; J2405; J3490; J7030; J7050; U0002

== ENCOUNTER 2024-04-30 05:14 | Inpatient (IN) | payer MEDICARE, MEDICAID ==
[2024-04-30 05:44] LABS: BASOPHILS ABSOLUTE AUTO 0.04 K/uL (0.00-0.10); BASOPHILS PERCENT AUTO 0.3 % (0.1-1.3); EOSINOPHILS ABSOLUTE AUTO 0.05 K/uL (0.00-0.40); EOSINOPHILS PERCENT AUTO 0.4 % (0.0-5.4); HEMATOCRIT 43.2 % (38.4-49.7); HEMOGLOBIN 14.5 g/dL (12.9-16.9); IMMATURE GRAN ABSOLUTE AUTO 0.05 K/uL (0.00-0.23); IMMATURE GRAN PERCENT AUTO 0.4 % (0.0-0.7); LYMPHOCYTES ABSOLUTE AUTO 0.85 K/uL (0.8-3.3); LYMPHOCYTES PERCENT AUTO 6.2 % (11.4-47.7); MEAN CORPUSCULAR HEMOGLOBIN 29.2 pg (31.6-35.5); MEAN CORPUSCULAR HGB CONC 33.6 g/dL (31.6-35.5); MEAN CORPUSCULAR VOLUME 86.9 fL (81.4-99.0); MONOCYTES ABSOLUTE AUTO 0.63 K/uL (0.20-0.90); MONOCYTES PERCENT AUTO 4.6 % (3.3-12.6); NEUTROPHILS ABSOLUTE AUTO 12.04 K/uL (1.0-7.6); NEUTROPHILS PERCENT AUTO 88.1 % (40.0-78.1); PLATELET COUNT,PLT 320 K/uL (130-375); RED BLOOD CELL COUNT 4.97 M/uL (4.14-5.76); WHITE BLOOD CELL COUNT,WBC 13.7 K/uL (3.2-11.0)
[2024-04-30] MEDS: Sodium Chloride 0.9% 1,000 ML IV SCH ×2 (05:50→10:30)
[2024-04-30] MEDS: cefTRIAXone 1 GM in Sodium Chloride 0.9% 50 ML IV ONE (05:51)
[2024-04-30 06:01] LABS: A/G RATIO 0.7 (1.2-2.2); ALANINE AMINOTRANSFERASE,ALT 29 U/L (12-78); ALBUMIN 3.4 g/dL (3.4-5.0); ALKALINE PHOSPHATASE 154 U/L (46-116); ANION GAP 10.6 mmol/L (5.0-14.0); ASPARTATE AMNIOTRANSFERASE,AST 20 U/L (15-37); BILIRUBIN TOTAL 0.4 mg/dL (0.2-1.0); BLOOD UREA NITROGEN,BUN 42 mg/dL (7-18); CARBON DIOXIDE,CO2 30 mmol/L (21-32); CHLORIDE,CL 100 mmol/L (100-108); CREATININE 1.7 mg/dL (0.8-1.3); ESTIMATED GFR 44 mL/min (>60); GLUCOSE RANDOM 139 mg/dL (74-106); POTASSIUM,K 4.3 mmol/L (3.6-5.2); PROTEIN TOTAL,TP 8.3 g/dL (6.4-8.2); SODIUM,NA 141 mmol/L (140-148)
[2024-04-30 06:22] LABS: CORONAVIRUS COVID-19 NAA NEGATIVE (NEGATIVE); INFLUENZA A NAA NEGATIVE (NEGATIVE); INFLUENZA B NAA NEGATIVE (NEGATIVE); RESPIRATORY SYNCYTIAL VIR NAA NEGATIVE (NEGATIVE)
[2024-04-30] MEDS: Vancomycin 2 GM in Sodium Chloride 0.9% 500 ML IV ONE (07:01)
[2024-04-30 07:12] LABS: APPEARANCE,URINE CLEAR (CLEAR); BILIRUBIN,URINE NEGATIVE (NEGATIVE); COLOR,URINE YELLOW (YELLOW); GLUCOSE,URINE NEGATIVE (NEGATIVE); KETONES,URINE NEGATIVE (NEGATIVE); LEUKOCYTE ESTERASE,URINE NEGATIVE (NEGATIVE); NITRITE,URINE NEGATIVE (NEGATIVE); OCCULT BLOOD,URINE NEGATIVE (NEGATIVE); PH,URINE 5.5 (5.0-8.0); PROTEIN,URINE NEGATIVE (NEGATIVE); UROBILINOGEN,URINE 0.2 EU/dL (0.2-1.0)
[2024-04-30 07:28] LABS: AMORPHOUS SEDIMENT,URINE NOT SEEN; BACTERIA,URINE NOT SEEN; EPITHELIAL CELLS,URINE NOT SEEN; MUCUS,URINE NOT SEEN; RBC,URINE NOT SEEN (0-5); WBC,URINE NOT SEEN (0-5)
[2024-04-30] MEDS: Acetaminophen 500 MG Tab PO ONE (07:29)
[2024-04-30] MEDS ORDERED: busPIRone 10 MG Tab PO SCH (09:51)
[2024-04-30] MEDS ORDERED: Magnesium Hydroxide 400 MG/5 ML Susp 30 ML Cup PO PRN (09:51)
[2024-04-30] MEDS ORDERED: Albuterol 0.083% 2.5 MG/3 ML Neb Soln NEB PRN (09:51)
[2024-04-30] MEDS ORDERED: Lisinopril 10 MG Tab PO SCH (09:51)
[2024-04-30] MEDS ORDERED: Ondansetron 4 MG/2 ML SDV IV PRN (09:51)
[2024-04-30] MEDS ORDERED: Furosemide 20 MG Tab PO SCH (09:51)
[2024-04-30] MEDS ORDERED: Ondansetron 4 MG Tab.DIS PO PRN (09:51)
[2024-04-30] MEDS: Albuterol/Ipratropium 3.0-0.5 MG/3 ML Neb Soln NEB SCH (10:22)
[2024-04-30] MEDS: Formoterol/Mometasone 200-5 MCG 8.8 GM Inhaler INH SCH (10:42)
[2024-04-30] MEDS: Doxycycline 100 MG in Sodium Chloride 0.9% 100 ML IV SCH (11:43)
[2024-04-30] MEDS: Nicotine 14 MG/24 Hr Patch TRDERM SCH (11:45)
[2024-04-30] MEDS: Lactobacillus Rhamnosus GG (Probiotic) Cap PO SCH (11:48)
[2024-04-30] MEDS: Gabapentin 100 MG Cap PO SCH (11:48)
[2024-04-30] MEDS: Furosemide 40 MG Tab PO SCH (11:49)
[2024-04-30] MEDS: Citalopram 20 MG Tab PO SCH (11:49)
[2024-04-30] MEDS: busPIRone 5 MG Tab PO SCH (11:49)
[2024-04-30] MEDS: Pantoprazole 40 MG Tab.CR PO SCH (11:49)
[2024-04-30] MEDS: risperiDONE 1 MG Tab PO SCH (11:50)
[2024-04-30] MEDS: amLODIPine 5 MG Tab PO SCH (12:41)
[2024-04-30] MEDS: Hydrochlorothiazide/Triamterene 25-37.5 Tab PO SCH (12:41)
[2024-04-30] MEDS: Lisinopril 20 MG Tab PO SCH (12:42)
[2024-04-30] MEDS: Acetaminophen 500 MG Tab PO SCH (12:45)
[2024-04-30] MEDS: hydrALAZINE 10 MG Tab PO SCH (12:46)
[2024-04-30] MEDS: Isosorbide Mononitrate 30 MG Tab.ER PO SCH (12:46)
[2024-04-30] MEDS: Metoprolol Succinate 50 MG Tab.ER PO SCH (12:46)
[2024-04-30] MEDS: predniSONE 20 MG Tab PO ONE (15:07)
[2024-04-30] MEDS: Insulin Lispro 100 Unit/ML 3 ML KwikPen SUBCUT SCH (16:55)
[2024-04-30] MEDS: atorvaSTATin 20 MG Tab PO SCH (21:15)
[2024-04-30] MEDS: Donepezil 10 MG Tab PO SCH (21:15)
[2024-04-30] MEDS: traZODone 50 MG Tab PO SCH (21:15)
[2024-04-30] MEDS: Cyclobenzaprine 10 MG Tab PO SCH (21:16)
[2024-04-30] MEDS: Melatonin 3 MG Tab PO SCH (21:16)
[2024-04-30] MEDS: guaiFENesin/Dextromethorphan 100-10 MG/5 ML Soln 10 ML Cup PO PRN (21:29)
[2024-05-01 04:43] LABS: HEMATOCRIT 31.5 % (38.4-49.7); HEMOGLOBIN 10.4 g/dL (12.9-16.9); MEAN CORPUSCULAR HEMOGLOBIN 29.1 pg (31.6-35.5); RED BLOOD CELL COUNT 3.58 M/uL (4.14-5.76)
[2024-05-01 05:01] LABS: CREATININE 1.7 mg/dL (0.8-1.3); EST CRCL DRUG DOSING (CG) 40.79 mL/min; POTASSIUM,K 4.6 mmol/L (3.6-5.2)
[2024-05-01 05:16] LABS: ANION GAP 12.6 mmol/L (5.0-14.0)
[2024-05-01] MEDS: cefTRIAXone 2 GM in Sodium Chloride 0.9% 50 ML IV SCH (05:40)
[2024-05-01] MEDS: predniSONE 20 MG Tab PO SCH (08:05)
[2024-05-01] MEDS: Doxycycline 100 MG Cap PO SCH (20:52)
[2024-05-02 06:24] LABS: HEMATOCRIT 32.9 % (38.4-49.7); MEAN CORPUSCULAR HEMOGLOBIN 29.2 pg (31.6-35.5); MEAN CORPUSCULAR HGB CONC 33.4 g/dL (31.6-35.5); MEAN CORPUSCULAR VOLUME 87.3 fL (81.4-99.0); RED BLOOD CELL COUNT 3.77 M/uL (4.14-5.76); WHITE BLOOD CELL COUNT,WBC 14.4 K/uL (3.2-11.0)
[2024-05-02 06:42] LABS: ANION GAP 7.7 mmol/L (5.0-14.0); CALCIUM 8.7 mg/dL (8.5-10.1); CREATININE 1.1 mg/dL (0.8-1.3); EST CRCL DRUG DOSING (CG) 63.05 mL/min; POTASSIUM,K 3.6 mmol/L (3.6-5.2)
[2024-05-02] MEDS: Potassium Chloride 20 MEQ Tab.ER PO ONE (10:55)
[2024-05-02] MEDS: Formoterol/Mometasone 200-5 MCG 8.8 GM Inhaler INH SCH (21:15)
[2024-05-02] MEDS: HYDROmorphone 0.5 MG/0.5 ML Syringe IVPUSH PRN (23:59)
[2024-05-03] MEDS: oxyCODONE 5 MG Tab PO PRN (01:06)
[2024-05-03] MEDS: Pantoprazole 40 MG Tab.CR PO SCH (07:44)
[2024-05-03] MEDS: Nicotine Polacrilex 2 MG Gum CHEW PRN (19:36)
[2024-05-04] MEDS: Sennosides/Docusate Sodium 50-8.6 MG Tab PO PRN (10:38)
[2024-05-05] MEDS: oxyCODONE 5 MG Tab PO PRN (11:19)
[2024-05-05] MEDS: Cyclobenzaprine 10 MG Tab PO PRN (11:20)
[2024-05-05 11:53] LABS: HEMATOCRIT 35.2 % (38.4-49.7); HEMOGLOBIN 11.6 g/dL (12.9-16.9); MEAN CORPUSCULAR HEMOGLOBIN 28.8 pg (31.6-35.5); MEAN CORPUSCULAR VOLUME 87.3 fL (81.4-99.0); RED BLOOD CELL COUNT 4.03 M/uL (4.14-5.76); WHITE BLOOD CELL COUNT,WBC 13.4 K/uL (3.2-11.0)
[2024-05-05 12:09] LABS: CALCIUM 8.5 mg/dL (8.5-10.1); CREATININE 1.5 mg/dL (0.8-1.3); EST CRCL DRUG DOSING (CG) 46.23 mL/min
[2024-05-05] MEDS: Levofloxacin 250 MG Tab PO SCH (14:23)
[2024-05-05] MEDS: Magnesium Sulfate/Water 2 GM in Premix Bag 1 BAG IV SCH (14:28)
[2024-05-05] MEDS: Magnesium Oxide 400 MG Tab PO SCH (21:18)
[2024-05-06 05:31] LABS: CALCIUM 8.9 mg/dL (8.5-10.1); CREATININE 1.2 mg/dL (0.8-1.3); EST CRCL DRUG DOSING (CG) 57.79 mL/min; MAGNESIUM 1.9 mg/dL (1.8-2.4); POTASSIUM,K 3.9 mmol/L (3.6-5.2)
[2024-05-06 05:34] LABS: ANION GAP 8.9 mmol/L (5.0-14.0)
[2024-05-06] MEDS ORDERED: Metoprolol Succinate 50 MG Tab.ER PO SCH (09:00)
[2024-05-06] MEDS ORDERED: Lisinopril 20 MG Tab PO SCH (09:00)
[2024-05-06] MEDS: Lisinopril 20 MG Tab PO SCH (09:28)
[2024-05-06] MEDS: Metoprolol Succinate 50 MG Tab.ER PO SCH (09:34)
== END 2024-05-06 11:25 | DRG 871 ==
LOC: JP.ED 05:14 → JP.MS 08:47
PROVIDERS: ADMIT Internal Medicine; ATTEND Hospitalist
DX: A41.9 Sepsis, unspecified organism (principal); J18.9 Pneumonia, unspecified organism; J96.01 Acute respiratory failure with hypoxia; S42.335A Nondisplaced oblique fracture of shaft of humerus, left arm, initial encounter for closed fracture; J44.1 Chronic obstructive pulmonary disease with (acute) exacerbation; F03.94 Unspecified dementia, unspecified severity, with anxiety; F03.93 Unspecified dementia, unspecified severity, with mood disturbance; J44.0 Chronic obstructive pulmonary disease with (acute) lower respiratory infection; Z68.41 Body mass index [BMI] 40.0-44.9, adult; E78.00 Pure hypercholesterolemia, unspecified; R65.20 Severe sepsis without septic shock; I11.0 Hypertensive heart disease with heart failure; I10 Essential (primary) hypertension; I50.9 Heart failure, unspecified; H54.7 Unspecified visual loss; J44.9 Chronic obstructive pulmonary disease, unspecified; K21.9 Gastro-esophageal reflux disease without esophagitis; G47.30 Sleep apnea, unspecified; I25.10 Atherosclerotic heart disease of native coronary artery without angina pectoris; E11.9 Type 2 diabetes mellitus without complications; E66.9 Obesity, unspecified; Z95.1 Presence of aortocoronary bypass graft; Z87.891 Personal history of nicotine dependence; Z79.899 Other long term (current) drug therapy; X50.1XXA Overexertion from prolonged static or awkward postures, initial encounter
CPT/HCPCS: 0241U; 36415; 71045; 73060; 80048; 80053; 81001; 82947; 83605; 83735; 84145; 85025; 85027; 87040; 94640; 94667; 94668; 96365; 96366; 96367; 97116; 97162; 97165; 97530; 97760; 97763; 99222; 99232; 99238; 99285; A9270-GY; J0696; J1170; J1815; J3370; J3475; J3490; J7030; J7040; J7512; J7620

== ENCOUNTER 2024-05-27 17:48 | Emergency (ER) | payer MEDICARE, MEDICAID ==
[2024-05-27] MEDS ORDERED: Norepinephrine Bit/D5W Premix 4 MG in Premix Bag 1 BAG IV SCH (18:30)
[2024-05-27 18:37] LABS: BASOPHILS ABSOLUTE AUTO 0.06 K/uL (0.00-0.10); BASOPHILS PERCENT AUTO 0.5 % (0.1-1.3); EOSINOPHILS ABSOLUTE AUTO 0.46 K/uL (0.00-0.40); EOSINOPHILS PERCENT AUTO 4.1 % (0.0-5.4); HEMATOCRIT 32.3 % (38.4-49.7); HEMOGLOBIN 10.7 g/dL (12.9-16.9); IMMATURE GRAN ABSOLUTE AUTO 0.07 K/uL (0.00-0.23); IMMATURE GRAN PERCENT AUTO 0.6 % (0.0-0.7); LYMPHOCYTES ABSOLUTE AUTO 1.51 K/uL (0.8-3.3); LYMPHOCYTES PERCENT AUTO 13.5 % (11.4-47.7); MEAN CORPUSCULAR HEMOGLOBIN 28.9 pg (31.6-35.5); MEAN CORPUSCULAR HGB CONC 33.1 g/dL (31.6-35.5); MEAN CORPUSCULAR VOLUME 87.3 fL (81.4-99.0); MONOCYTES ABSOLUTE AUTO 1.37 K/uL (0.20-0.90); MONOCYTES PERCENT AUTO 12.2 % (3.3-12.6); NEUTROPHILS ABSOLUTE AUTO 7.75 K/uL (1.0-7.6); NEUTROPHILS PERCENT AUTO 69.1 % (40.0-78.1); PLATELET COUNT,PLT 278 K/uL (130-375); WHITE BLOOD CELL COUNT,WBC 11.2 K/uL (3.2-11.0)
[2024-05-27 18:57] LABS: INR 1.1; PTT,PARTIAL THROMBOPLSTIN TIME 28.5 sec (21.8-27.3)
[2024-05-27 18:58] LABS: A/G RATIO 0.5 (1.2-2.2); ALANINE AMINOTRANSFERASE,ALT 31 U/L (12-78); ALBUMIN 2.4 g/dL (3.4-5.0); ALKALINE PHOSPHATASE 148 U/L (46-116); ANION GAP 6.7 mmol/L (5.0-14.0); ASPARTATE AMNIOTRANSFERASE,AST 25 U/L (15-37); BILIRUBIN TOTAL 0.5 mg/dL (0.2-1.0); BLOOD UREA NITROGEN,BUN 21 mg/dL (7-18); CARBON DIOXIDE,CO2 31 mmol/L (21-32); CHLORIDE,CL 103 mmol/L (100-108); CREATININE 1.2 mg/dL (0.8-1.3); EST CRCL DRUG DOSING (CG) 59.73 mL/min; ESTIMATED GFR 66 mL/min (>60); GLUCOSE RANDOM 114 mg/dL (74-106); POTASSIUM,K 3.8 mmol/L (3.6-5.2); PROTEIN TOTAL,TP 6.9 g/dL (6.4-8.2); SODIUM,NA 141 mmol/L (140-148)
[2024-05-27] MEDS: Heparin Sodium 5,000 Units/ML Vial IVPUSH ONE (20:32)
[2024-05-27] MEDS: Heparin Sodium/D5W 25,000 UNITS/500 ML BAG IV SCH (20:32)
[2024-05-27] MEDS: Sodium Chloride 0.9% 1,000 ML IV SCH (20:34)
[2024-05-27] MEDS: Heparin Sodium 5,000 Units/ML Vial ONE (20:46)
== END 2024-05-27 23:07 ==
LOC: JP.ED 17:48
DX: I27.82 Chronic pulmonary embolism (principal); I95.89 Other hypotension; C79.51 Secondary malignant neoplasm of bone; C64.1 Malignant neoplasm of right kidney, except renal pelvis; F17.200 Nicotine dependence, unspecified, uncomplicated; E11.9 Type 2 diabetes mellitus without complications; E66.9 Obesity, unspecified; J44.9 Chronic obstructive pulmonary disease, unspecified; K21.9 Gastro-esophageal reflux disease without esophagitis; I25.10 Atherosclerotic heart disease of native coronary artery without angina pectoris; I11.0 Hypertensive heart disease with heart failure; I50.9 Heart failure, unspecified; E78.00 Pure hypercholesterolemia, unspecified; Z95.1 Presence of aortocoronary bypass graft; Z95.5 Presence of coronary angioplasty implant and graft; Z79.899 Other long term (current) drug therapy
CPT/HCPCS: 36415; 80053; 83605; 83880; 84484; 85025; 85610; 85730; 93010; 96365; 96366; 99284; 99285; J1644; J7030